=== PATIENT | male | born 1975 | race Caucasian/White ===

== ENCOUNTER 2020-02-24 16:54 | Outpatient (REF) | payer OTHER, SELFPAY | END 2020-02-24 16:55 | disposition home or self-care (01) | LOC: HO.LAB 16:54 | PROVIDERS: PCP Nurse Practitioner Family; Visit Provider Nurse Practitioner Family | DX: Z20.828 Contact with and (suspected) exposure to other viral communicable diseases (principal) | CPT/HCPCS: U0003 ==

== ENCOUNTER 2020-03-21 14:22 | Outpatient (REF) | payer OTHER, SELFPAY | END 2020-03-21 14:23 | disposition home or self-care (01) | LOC: HO.LAB 14:22 | PROVIDERS: PCP Nurse Practitioner Family; Visit Provider Internal Medicine | DX: Z20.828 Contact with and (suspected) exposure to other viral communicable diseases (principal) | CPT/HCPCS: C9803; U0003 ==

== ENCOUNTER 2020-04-21 12:21 | Outpatient (REF) | payer OTHER, SELFPAY ==
[2020-04-21 14:26] LABS: Alanine Aminotransferase 43 U/L (0-40); Albumin Level 4.5 g/dL (3.5-5.0); Alkaline Phosphatase 64 U/L (39-117); Anion Gap 12 (12-20); Aspartate Amino Transferase 23 U/L (5-37); Bilirubin Total 0.6 mg/dL (0.0-1.0); Blood Urea Nitrogen 14 mg/dL (9-16); Calcium 9.5 mg/dL (8.4-10.2); Carbon Dioxide 30 mmol/L (22-29); Chloride 100 mmol/L (96-108); Cholesterol 224 mg/dL; Estimated Glomerular Filt Rate > 60; Glucose Fasting 84 mg/dL (60-99); HDL Cholesterol 41 mg/dL; LDL Cholesterol Calculated 143 mg/dl; Potassium 3.7 mmol/l (3.3-5.1); Sodium 138 mmol/L (135-145); Total Protein 7.5 g/dL (6.5-8.0); Triglycerides 200 mg/dL
[2020-04-21 14:48] LABS: TSH reflex Free T4 1.43 mIU/mL (0.32-4.0)
== END 2020-04-21 12:22 | disposition home or self-care (01) ==
LOC: HO.HMGCLDS 12:21
PROVIDERS: PCP Nurse Practitioner Family; Visit Provider Nurse Practitioner Family
DX: Z00.00 Encounter for general adult medical examination without abnormal findings (principal)
CPT/HCPCS: 36415; 80053; 80061; 84443

== ENCOUNTER 2020-04-25 12:59 | Outpatient (REF) | payer OTHER, SELFPAY ==
[2020-04-27 09:42] LABS: HBc Num1 0.15 S/CO (0.00-0.79); HBsAGNum1 0.27 S/CO (0.00-0.99); Hepatitis A Antibody IgM 0.21 Index (0-0.79); Hepatitis B Core Antibody Nonreactive (Nonreactive); Hepatitis B Surface Antigen Negative (Negative); ~HepC Num1 0.11 S/CO (0.00-0.79); ~Hepatitis A Antibody IgM Nonreactive (Nonreactive); ~Hepatitis B Surface Antibody NONREACTIVE (Nonreactive); ~Hepatitis C Antibody Nonreactive (Nonreactive)
== END 2020-04-25 13:00 | disposition home or self-care (01) ==
LOC: HO.LAB 12:59
PROVIDERS: PCP Nurse Practitioner Family; Visit Provider Nurse Practitioner Family
DX: R74.8 Abnormal levels of other serum enzymes (principal)
CPT/HCPCS: 36415; 86704; 86706; 86709; 86803; 87340

== ENCOUNTER 2020-05-03 09:52 | Outpatient (REF) | payer OTHER, SELFPAY ==
--- NOTE | 2020-05-03 09:56 | US_ITS ---
EXAMINATION: US ABDOMEN COMPLETE CLINICAL INFORMATION: Abnormal liver function tests. COMPARISON: Ultrasound abdomen limited 04/18/2018 TECHNIQUE: Real-time imaging of the abdominal viscera. FINDINGS: PANCREAS: Normal. ABDOMINAL AORTA: The proximal, mid, and distal segments are normal in caliber. INFERIOR VENA CAVA: Visualized portions are normal. LIVER: There is increased liver echogenicity. The liver is normal in size. The liver contour is normal. No focal hepatic lesion. There is no intrahepatic biliary duct dilatation seen. GALLBLADDER: Normal. The gallbladder is physiologically distended without evidence of stones, sludge, polyps, wall thickening, or pericholecystic fluid. COMMON BILE DUCT: Normal in caliber measuring 0.3 cm in diameter. RIGHT KIDNEY: Normal. No hydronephrosis. No renal calculi or focal parenchymal lesions. The kidney measures 10.7 cm in maximum dimension. LEFT KIDNEY: Normal. No hydronephrosis. No renal calculi or focal parenchymal lesions. The kidney measures 11.6 cm in maximum dimension. SPLEEN: Normal. The spleen measures 12.6 cm in maximum dimension. FREE FLUID: None. US/US abdomen complete IMPRESSION: Mild hepatic steatosis without any focal lesion. The rest of the abdominal ultrasound is unremarkable.
== END 2020-05-03 09:53 | disposition home or self-care (01) ==
LOC: HO.HMGCX 09:52
PROVIDERS: PCP Nurse Practitioner Family; Visit Provider Nurse Practitioner Family
DX: R74.8 Abnormal levels of other serum enzymes (principal)
CPT/HCPCS: 76700

== ENCOUNTER 2020-09-19 13:54 | Outpatient (REF) | payer OTHER, SELFPAY ==
--- NOTE | ~2020-09-19 | XR_ITS ---
EXAMINATION: XR WRIST, RIGHT CLINICAL INFORMATION: Injury right wrist. Pain. COMPARISON: None TECHNIQUE: PA, lateral, and oblique views of the right wrist. FINDINGS: There is no fracture, dislocation, or destructive process. The ulnar variance is neutral. The pronator quadratus fat pad appears normal. There is no joint narrowing or erosive change or visible chondrocalcinosis. XR/XR wrist RT min 3V IMPRESSION: Normal right wrist.
[2020-09-19 16:59] LABS: Alanine Aminotransferase 43 U/L (0-40); Albumin Level 4.7 g/dL (3.5-5.0); Alkaline Phosphatase 69 U/L (39-117); Anion Gap 15 (12-20); Aspartate Amino Transferase 26 U/L (5-37); Bilirubin Total 0.4 mg/dL (0.0-1.0); Blood Urea Nitrogen 17 mg/dL (9-16); Calcium 9.5 mg/dL (8.4-10.2); Carbon Dioxide 26 mmol/L (22-29); Chloride 103 mmol/L (96-108); Cholesterol 204 mg/dL; Estimated Glomerular Filt Rate > 60; Glucose Fasting 81 mg/dL (60-99); HDL Cholesterol 39 mg/dL; LDL Cholesterol Calculated 129 mg/dl; Potassium 4.3 mmol/L (3.3-5.1); Sodium 140 mmol/L (135-145); Total Protein 7.7 g/dL (6.5-8.0); Triglycerides 183 mg/dL
== END 2020-09-19 13:55 | disposition home or self-care (01) ==
LOC: HO.HMGCX 13:54
PROVIDERS: PCP Nurse Practitioner Family; Visit Provider Nurse Practitioner Family
DX: S69.91XA Unspecified injury of right wrist, hand and finger(s), initial encounter (principal); E78.5 Hyperlipidemia, unspecified
CPT/HCPCS: 36415; 73110; 80053; 80061

== ENCOUNTER 2021-07-18 12:17 | Outpatient (REF) | payer OTHER, SELFPAY ==
[2021-07-18 14:39] LABS: Alanine Aminotransferase 44 U/L (0-40); Albumin Level 4.4 g/dL (3.5-5.0); Alkaline Phosphatase 70 U/L (39-117); Anion Gap 13 (12-20); Aspartate Amino Transferase 23 U/L (5-37); Bilirubin Total 0.6 mg/dL (0.0-1.0); Blood Urea Nitrogen 16 mg/dL (9-16); Calcium 9.9 mg/dL (8.4-10.2); Carbon Dioxide 26 mmol/L (22-29); Chloride 102 mmol/L (96-108); Cholesterol 219 mg/dL; Estimated Glomerular Filt Rate > 60; Glucose Fasting 100 mg/dL (60-99); HDL Cholesterol 38 mg/dL; LDL Cholesterol Calculated 152 mg/dl; Sodium 137 mmol/L (135-145); Total Protein 7.6 g/dL (6.5-8.0); Triglycerides 145 mg/dL
[2021-07-18 14:54] LABS: TSH reflex Free T4 2.62 uIU/mL (0.32-4.0)
== END 2021-07-18 12:18 | disposition home or self-care (01) ==
LOC: HO.HMGCLDS 12:17
PROVIDERS: Visit Provider Nurse Practitioner Family
DX: E78.5 Hyperlipidemia, unspecified (principal)
CPT/HCPCS: 36415; 80053; 80061; 84443

== ENCOUNTER 2021-10-06 14:52 | Outpatient (REF) | payer OTHER, SELFPAY ==
[2021-10-06 16:40] LABS: Cholesterol 151 mg/dL; HDL Cholesterol 40 mg/dL; LDL Cholesterol Calculated 96 mg/dl; Triglycerides 78 mg/dL
== END 2021-10-06 14:53 | disposition home or self-care (01) ==
LOC: HO.HMGCLDS 14:52
PROVIDERS: PCP Nurse Practitioner Family; Visit Provider Nurse Practitioner Family
DX: E78.5 Hyperlipidemia, unspecified (principal)
CPT/HCPCS: 36415; 80061

== ENCOUNTER 2023-02-27 13:18 | Outpatient (AMB) | payer OTHER, SELFPAY ==
--- NOTE | 2023-02-27 13:36 | MHC.OFFWIV ---
Intake Vital Signs 02/27/23 13:37 Height 5 ft 10 in Weight 208 lb BMI 29.8 BP 120/80 Blood Pressure Location Rt brachial Position Sitting Pulse 66 Pulse Source Pulse Oximeter Pulse Oximetry (%) 98 Oxygen Delivery Method Room Air Intake Visit Reasons: EP, swelling on left side of cheek Intake Note: Patient here for possible infection on left upper gum that has been present for about 3 days. Patient Tobacco Use Status: Never used Tobacco Allergies pollen Allergy (Unknown, Verified 02/27/23 13:38) Unknown trees Allergy (Unknown, Verified 02/27/23 13:38) Unknown Do you need a note to return to daycare/school/sports/work: No HPI EP, swelling on left side of cheek HPI Details 47 year old patient presents today with inflammed gums at the top/inner aspect of the left side of his mouth. He denies any recent dental work or mouth trauma. Denies any tooth pain. Denies fever/chills. Has throbbing mouth pain that radiates into the left side of his face. Has been using Ibuprofen with minimal relief. [facility] Medical History Vertigo Sensorineural hearing loss Microscopic hematuria Chiari I malformation Menieres disease Surgical History History of abdominal surgery Family History Father Migraine Mother Anxiety Depression Asthma Housing: House Housing Other:: with mother Alcohol intake: never Patient Tobacco Use Status: Never used Tobacco Second Hand Smoke Exposure: No service: No Current occupational status: disabled Cognitive needs: No Hearing needs: No Vision needs: No Review of Systems Const All systems reviewed & are unremarkable except as noted in HPI and below Physical Exam Vital Signs: BMI result Body Mass Index 29.0 Const General: cooperative, healthy appearing, comfortable and no acute distress HEENT Head: Yes normal to inspection General nose exam: Normal external nose present and Normal nasal mucous membranes and turbinates present Face and sinus: Yes normal facial exam Mouth: moist mucous membranes and moist mucous membranes abnormal (swollen, erythematous gingival tissue inf aspect of left upper/inner mouth) Teeth and gingiva: dentition normal Teeth image: 1. erythema, swelling, tenderness Throat: Yes posterior oropharynx normal Neck Neck: Yes no lymphadenopathy Resp Effort & Inspection: normal respiratory effort and able to speak in complete sentences Auscultation: clear to auscultation bilaterally Cardio Jugular venous distension: no JVD Palpation: normal PMI Rate: regular rate Rhythm: regular rhythm Skin General skin exam: no rashes or lesions noted Psych Appearance: grossly normal Mental Status: mental status grossly normal Speech and movement: Normal speech and movement present Assessment & Plan Assessment & Plan (1) Oral cellulitis: Code(s): K12.2 - Cellulitis and abscess of mouth Plan: Odontogenic soft tissue infection. Will start patient on augmentin and also meloxicam. Reviewed indications, use, possible s/e of these. We discussed going to see dentist/oral surgeon however he does not wish to do this as he had a negative experience last time. I encouraged him to go to ED if he does not begin to improve with treatment, or certainly if condition worsens or new symptoms such as increased pain, fever, or chills develop. He verbalizes understanding and agrees to plan. Medications: New amoxicillin-pot clavulanate 875-125 mg 1 tab PO BID 7 days 14 tabs 0RF K12.2 - Cellulitis and abscess of mouth meloxicam 15 mg PO DAILY 7 days 7 tabs 0RF pain K12.2 - Cellulitis and abscess of mouth Coding Level of Care Code Est Pt Level 3 (70385) Diagnoses Oral cellulitis K12.2
[2023-02-27 13:37] VITALS: BP 120/80; PULSE 66; O2SAT 98; BMI 29.8
== END 2023-02-27 14:01 | disposition home or self-care (01) ==
PROVIDERS: PCP Nurse Practitioner Family; Visit Provider Nurse Practitioner Family
DX: K12.2 Cellulitis and abscess of mouth (principal)
CPT/HCPCS: 99213

== ENCOUNTER 2024-04-05 08:01 | Emergency (ER) | payer OTHER, SELFPAY ==
--- NOTE | ~2024-04-05 | CT_ITS ---
CLINICAL HISTORY: RLQ pain CT abdomen and pelvis with IV contrast Comparison: US - US ABDOMEN COMPLETE - 05/03/2020 10:03 AM EST Findings: Right middle lobe atelectasis. No dependent layering pleural effusions. The heart is not enlarged. Coronary artery calcifications: None. Liver normal size and contour. No focal hepatic lesions. Patent hepatic and portal veins. Physiologic distention of the gallbladder with no radiopaque gallstones. Homogeneous enhancement of the pancreas. No splenomegaly. Normal adrenal glands. Symmetrical renal excretion with no segmental or diffuse renal parenchymal disease or evidence of obstructive uropathy/hydroureteronephrosis. Normal caliber abdominal aorta. Bowel demonstrates a nonobstructive pattern. No free air. Normal appendix and terminal ileum. Diverticulosis coli without CT evidence of acute diverticulitis. Within the subcutaneous soft tissues of the right ischioanal fossa is a 2.3 cm circumscribed nodule partially imaged. The density has a measurement of 27 Hounsfield units. Partially decompressed urinary bladder. Probable mild cystitis. Mild prostatomegaly. No vertebral body compression fractures or spondylolisthesis. No bony destructive lesions. Impression: 1. Normal appendix. 2. Mild cystitis suspected. No pyelonephritis or pyonephrosis. Bilateral subcentimeter renal cortical cysts can be correlated with ultrasound. Mild prostatomegaly 3. 2.3 cm partially imaged circumscribed lesion in the right ischioanal fossa Hounsfield units 27. This is indeterminate. A pre and post-contrast CT or MRI of the pelvis can be considered on a outpatient basis. This document has been electronically signed by: Avel Fernandez MD on 04/05/2024 10:18:37
[2024-04-05 08:02] VITALS: BP 142/88; PULSE 83; RESP 16; TEMP 36.3; O2SAT 95; BMI 29.4
[2024-04-05 08:19] VITALS: BP 140/81; PULSE 81; RESP 16; TEMP 36.6; O2SAT 95
--- NOTE | 2024-04-05 08:22 | ED.ABDPAIN ---
HPI - Abdominal Pain General Chief Complaint: Abdominal Pain Stated Complaint: LRQ pain Time Seen by Provider: 04/05/24 08:22 Source: patient and RN notes reviewed Mode of arrival: ambulatory Limitations: no limitations History of Present Illness ED Provider: Marcela Murillo PA-C HPI narrative: This is a 48-year-old male, with a history of Meniere's disease, who presents emergency department with complaints of right lower quadrant pain which started at 7:00 a.m. this morning. Patient states that the pain woke him up. He states that the pain starts in his right lower quadrant, and radiates into his right flank. He states that he is still passing gas. He states as a child he had a small bowel obstruction. He denies any fevers, chills, nausea, chest pain, shortness of breath. Last bowel movement was this morning, states that he had to strain to pass this stool. Denies any diarrhea. Does admit to having darker colored urine this AM. No other urinary symptoms. Denies taking any medications prior to his arrival. No other complaints or concerns at this time. MD elicited complaint: abdominal pain and flank pain Pertinent past history: none Onset (ago): hour(s) Pain Consistency: constant Location: RLQ and R flank Quality: cramping, stabbing and aching Radiation: R flank Exacerbating factors: nothing Relieving factors: other (Passing gas) Associated symptoms: denies other symptoms Related Data Home Medications ?Medication ?Instructions ?Recorded ?Confirmed nortriptyline 50 mg capsule 50 mg PO BEDTIME 02/22/20 12/06/21 triamterene 37.5 1 cap PO DAILY 02/22/20 12/06/21 mg-hydrochlorothiazide 25 mg capsule verapamil 120 mg tablet 120 mg PO DAILY 02/22/20 12/06/21 Previous Rx's ?Medication ?Instructions ?Recorded atorvastatin 10 mg tablet 10 mg PO BEDTIME 90 days #90 tabs 08/10/22 loratadine 10 mg tablet 10 mg PO DAILY 90 days #90 tabs 08/10/22 amoxicillin 875 mg-potassium 1 tab PO BID 7 days #14 tabs 02/27/23 clavulanate 125 mg tablet meloxicam 15 mg tablet 15 mg PO DAILY pain 7 days #7 tabs 02/27/23 cefuroxime axetil 500 mg tablet 500 mg PO BID 7 days #13 tabs 04/05/24 Allergies Allergy/AdvReac Type Severity Reaction Status Date / Time pollen Allergy Unknown Unknown Verified 04/05/24 08:05 trees Allergy Unknown Unknown Verified 04/05/24 08:05 Review of Systems Review of Systems Yes all other systems are reviewed and are negative Constitutional: Reports as per HPI [facility] Past Medical History Medical History Vertigo Sensorineural hearing loss Microscopic hematuria Chiari I malformation Menieres disease Surgical History History of abdominal surgery Family History Family History Father Migraine Mother Anxiety Depression Asthma Social History Social History Housing: House Housing Other:: with mother Alcohol intake: never Patient Tobacco Use Status: Never used Tobacco Smoked in Last 30 Days: No Second Hand Smoke Exposure: No Use of substances other than those prescribed or required for medical reasons: No Advance Directives: No Advance Directives Information Provided: No service: No Current occupational status: disabled Cognitive needs: No Hearing needs: No Vision needs: No Physical Exam ED Vital Signs: Vital Signs - 24 hr 04/05/24 11:02 04/05/24 11:18 Temperature 97.8 F 97.8 F Pulse Rate 75 75 Respiratory Rate 14 14 Blood Pressure 129/75 129/75 Pulse Oximetry 93 93 Oxygen Delivery Method Room Air Room Air BMI result Body Mass Index 29.4 Const General: cooperative, comfortable and no acute distress Orientation/consciousness: patient oriented x3 Limitations: no limitations [facility] Head: Yes normal to inspection, Yes normocephalic and Yes atraumatic Ears: hearing grossly normal bilaterally General nose exam: Normal external nose present Face and sinus: Yes normal facial exam Mouth: Normal oral and palatal mucosa present, oropharynx normal and moist mucous membranes Throat: Yes posterior oropharynx normal Eyes General: appearance normal, both eyes and all related structures Eyelids: Yes eyelids normal Conjunctivae: conjunctivae normal Sclerae: sclerae normal Pupils: Equal, round and reactive pupils present EOM: EOMs intact bilaterally Neck Neck: Yes normal visual inspection, Yes full ROM and Yes no lymphadenopathy Lymphatic: no lymphadenopathy noted Chest Chest palpation & inspection: normal inspection of the chest Resp Effort & Inspection: normal respiratory effort and able to speak in complete sentences Auscultation: clear to auscultation bilaterally, no crackles, no rales, no rhonchi and no wheezes Cardio Rate: regular rate Rhythm: regular rhythm Heart sounds: S1 normal heart sound present and S2 normal heart sound present GI Other: Abdomen is soft, with no palpable pain however patient reports subjective pain in the right lower quadrant. No rebound or guarding. Normoactive bowel sounds present in all 4 quadrants. Inspection: Yes normal to inspection General: Yes no CVA tenderness Back/Spine/Pelvis Back: no CVA tenderness Skin General skin exam: no rashes or lesions noted Trauma: no lacerations or abrasions Wounds: no wounds Neuro General: patient oriented x3 and moves all extremities Cranial nerves: Yes Equal, round and reactive pupils present Extrem General: Yes normal to inspection Right upper extremity: normal to inspection Left upper extremity: normal to inspection Right lower extremity: normal to inspection Left lower extremity: normal to inspection Course Reevaluation(s) Reevaluation #1: Labs returned, no leukocytosis, stable H&H, no evidence of CAITLIN. Urine with protein, large blood, leuk esterases, and rbc's. CT scan revealing mild cystitis, no pyelo, also revealing bilateral sub cm cortical cyst, prostatomegaly, and a circumscribed lesion in the right ischioanal fossa - discussed findings with patient. He will follow-up with his primary care physician. Discharged on cefuroxime. Given strict return precautions. He understands agrees with plan. Patient stable for discharge. Time: 11:00 Medical Decision Making Medical Decision Making MDM Narrative: This is a 48-year-old male, with a history of Meniere's disease, who presents emergency department accompanied by his mother with concerns for right lower quadrant pain which started at 7:00 a.m. this morning. On arrival, patient mildly hypertensive at 142/80, all other vital signs within normal limits. Patient appears to be comfortable, under no acute distress. Abdomen is soft, nontender, nondistended. He has had no urinary symptoms. Differential diagnoses include obstructive uropathy, nephrolithiasis, small-bowel obstruction, gastroenteritis, gastritis. Plan: Labs, CT scan, Toradol 30 mg IV Differential Diagnosis Differential Diagnoses: The differential diagnosis associated with the presentation includes see above Lab Data MDM Lab Attestation statement: I reviewed the patient's lab results. see course comment 04/05/24 08:48 04/05/24 08:48 Labs: Lab Results 04/05/24 04/05/24 Range/Units 08:48 09:41 WBC 7.4 (4.8-10.8) X10*3/uL RBC 4.76 (4.60-5.80) X10*6/uL Hgb 15.8 (14.0-18.0) g/dl Hct 43.2 (42.0-52.0) % MCV 90.8 (80.0-98.0) fL MCH 33.2 H (27.0-33.0) pg MCHC 36.6 H (31.0-36.0) g/dl RDW 11.8 (11.0-16.0) % Plt Count 225 (160-400) X10*3/uL MPV 8.7 L (9.4-12.4) fL Immature Gran % (Auto) 0.3 (0.0-0.4) % Neut % (Auto) 71.6 (45-73) % Lymph % (Auto) 19.1 L (20-40) % [place] % (Auto) 7.1 (2-11) % Eos % (Auto) 1.2 (0-4) % Baso % (Auto) 0.7 (0-2) % Lymph # (Auto) 1.4 (1.2-4.9) X10*3/uL [place] # (Auto) 0.5 (0.1-1.2) X10*3/uL Eos # (Auto) 0.1 (0.0-0.4) X10*3/uL Baso # (Auto) 0.1 (0.0-0.2) X10*3/uL Abs Immat Gran (auto) 0.02 (0.00-0.03) X10*3/uL Absolute Neuts (auto) 5.3 (2.0-8.3) x10*3/uL Absolute Nucleated RBC 0.000 (0.0-0.012) X10*3/uL Nucleated RBC % (auto) 0.0 (0.0-0.2) /100WBC Sodium 142 (135-145) mmol/L Potassium 3.6 (3.3-5.1) mmol/L Chloride 105 (96-108) mmol/L Carbon Dioxide 28 (22-29) mmol/L Anion Gap 13 (12-20) BUN 12 (9-16) mg/dL Creatinine 1.11 (0.5-1.4) mg/dL Estim Creat Clear Calc 91.1 Estimated GFR > 60 Random Glucose 116 H (60-115) mg/dL Calcium 9.0 D (8.4-10.2) mg/dL Magnesium 2.0 (1.6-2.6) mg/dL Total Bilirubin 0.8 (0.0-1.0) mg/dL Direct Bilirubin 0.2 (0.0-0.5) mg/dL AST 26 (5-37) U/L ALT 39 (0-40) U/L Alkaline Phosphatase 70 (39-117) U/L Total Protein 7.1 (6.5-8.0) g/dL Albumin 4.2 (3.5-5.0) g/dL Lipase 20 (8-78) U/L Urine Color Dark Yellow Urine Appearance Cloudy Urine pH 5.5 (5.0-9.0) Ur Specific [place] 1.025 (1.005-1.025) Urine Protein 30 (1+) H (Neg-Trace) mg/dL Urine Glucose (UA) Negative (Negative) mg/dL Urine Ketones Trace (Negative) mg/dL Urine Blood Large (3+) H (Negative) Urine Nitrite Negative (Negative) Ur Leukocyte Esterase Trace H (Negative) Urine RBC >20 H (0-2) /HPF Urine WBC 0-5 (0-5) /HPF Ur Squamous Epith Cells 0-2 (0-2) /HPF Urine Bacteria None Seen (None Seen) Hyaline Casts 3-5 (0-2) /LPF Radiology Impression Discussion of test interpretation with radiology: I have reviewed the radiologist's reading. Radiologist Impression: [address] [address] [address] Scan Report Signed Patient: Cr Cuello Jr MR#: [id number] : 1975 Acct:[id number] Age/Sex: 48 / M ADM Date: 04/05/24 Loc: HO.ED Attending Dr: Ordering Physician: Marcela Murillo Date of Service: 04/05/24 Procedure(s): CT abdomen pelvis w IV con Accession Number(s): [id number] cc: You Ramirez [facility]-; Marcela Murillo~ Report Number: [id number]: Total DLP = 614.00 mGy-cm CLINICAL HISTORY: RLQ pain CT abdomen and pelvis with IV contrast Comparison: US - US ABDOMEN COMPLETE - 05/03/2020 10:03 AM EST Findings: Right middle lobe atelectasis. No dependent layering pleural effusions. The heart is not enlarged. Coronary artery calcifications: None. Liver normal size and contour. No focal hepatic lesions. Patent hepatic and portal veins. Physiologic distention of the gallbladder with no radiopaque gallstones. Homogeneous enhancement of the pancreas. No splenomegaly. Normal adrenal glands. Symmetrical renal excretion with no segmental or diffuse renal parenchymal disease or evidence of obstructive uropathy/hydroureteronephrosis. Normal caliber abdominal aorta. Bowel demonstrates a nonobstructive pattern. No free air. Normal appendix and terminal ileum. Diverticulosis coli without CT evidence of acute diverticulitis. Within the subcutaneous soft tissues of the right ischioanal fossa is a 2.3 cm circumscribed nodule partially imaged. The density has a measurement of 27 Hounsfield units. Partially decompressed urinary bladder. Probable mild cystitis. Mild prostatomegaly. No vertebral body compression fractures or spondylolisthesis. No bony destructive lesions. Impression: 1. Normal appendix. 2. Mild cystitis suspected. No pyelonephritis or pyonephrosis. Bilateral subcentimeter renal cortical cysts can be correlated with ultrasound. Mild prostatomegaly 3. 2.3 cm partially imaged circumscribed lesion in the right ischioanal fossa Hounsfield units 27. This is indeterminate. A pre and post-contrast CT or MRI of the pelvis can be considered on a outpatient basis. This document has been electronically signed by: Avel Fernandez MD on 04/05/2024 10:18:37 Dictated By: Avel Fernandez MD Medications Administered Discontinued Medications Generic Name Dose Route Start Last Admin Trade Name Freq PRN Reason Stop Dose Admin Cefuroxime Axetil 500 mg 04/05/24 10:59 04/05/24 11:13 Cefuroxime Axetil 500 Mg Tablet PO 04/05/24 11:00 500 mg ONCE ONE Administration Iohexol 100 ml 04/05/24 09:39 04/05/24 09:39 Iohexol 350 Mg/Ml 100 Ml Infus..Btl IV 04/05/24 09:40 85 ml ONCE ONE Administration Ketorolac Tromethamine 30 mg 04/05/24 08:36 04/05/24 08:49 Ketorolac Tromethamine 30 Mg/Ml Vial IVPUSH 04/05/24 08:37 30 mg ONCE ONE Administration Discharge Plan Discharge Clinical Impression: Cystitis, Abnormal CT scan Patient Disposition: Home, Self-Care Instructions: Urinary Tract Infection in Men (ED) Additional Instructions: You were seen in the emergency department due to abdominal pain. Your urine is concerning for urinary tract infection. Your CT scan also reveals evidence of this. Please take prescribed antibiotic as directed, finish the entire course even if your symptoms improve. We are sending your urine for further testing, we will call you if we need to switch your antibiotic. You also have incidental findings on your CT scan. Please see below for CT scan details. Your primary care physician can follow-up with these findings. Impression: 1. Normal appendix. 2. Mild cystitis suspected. No pyelonephritis or pyonephrosis. Bilateral subcentimeter renal cortical cysts can be correlated with ultrasound. Mild prostatomegaly 3. 2.3 cm partially imaged circumscribed lesion in the right ischioanal fossa Hounsfield units 27. This is indeterminate. A pre and post-contrast CT or MRI of the pelvis can be considered on a outpatient basis. If any new or worsening symptoms occur including but not limited to high fevers, severe abdominal pain, nausea, vomiting or diarrhea, please seek emergent care. Prescriptions: New cefuroxime axetil 500 mg tablet 500 mg PO BID 7 Days Qty: 13 0RF No Action atorvastatin 10 mg tablet 10 mg PO BEDTIME 90 Days Qty: 90 1RF Rx Instructions: schedule PCP appt for future refills loratadine 10 mg tablet 10 mg PO DAILY 90 Days Qty: 90 1RF Rx Instructions: schedule PCP appt for future refills nortriptyline 50 mg capsule 50 mg PO BEDTIME triamterene-hydrochlorothiazid 37.5-25 mg capsule 1 cap PO DAILY verapamil 120 mg tablet 120 mg PO DAILY amoxicillin-pot clavulanate 875-125 mg tablet 1 tab PO BID 7 Days Qty: 14 0RF meloxicam 15 mg tablet 15 mg PO DAILY 7 Days Qty: 7 0RF Referrals: You Ramirez, [facility] [Primary Care Provider] - Interventions: ED Discharge Assessment Last Done: 04/05/24 11:18 Discharge Date/Time: 04/05/24 11:29 Print Language: Japanese
--- NOTE | 2024-04-05 08:25 | PC.NURSE ---
Pt comes to ED today for c/o RLQ abd pain starting this AM at 0700. Pt reports pain is 9/10 achy in nature with numbness to the area. Pt denies Hx constipation however reports today he had a BM but felt there was still more to pass. Denies changes to PO intake. No pain with urination. A&Ox3, VSS, afebrile. Skin is warm and dry Breaths and speech are unlabored. NAD noted at this time PA at bedside for eval--awaiting new orders.
[2024-04-05] MEDS: Ketorolac Tromethamine 30 MG/ML VIAL IVPUSH (08:49)
[2024-04-05 08:55] LABS: MANUAL DIFF FLAG NO
[2024-04-05 08:56] LABS: Basophils Absolute Auto 0.1 X10*3/uL (0.0-0.2); Basophils Percent Auto 0.7 % (0-2); Eosinophils Absolute Auto 0.1 X10*3/uL (0.0-0.4); Eosinophils Percent Auto 1.2 % (0-4); Hematocrit 43.2 % (42.0-52.0); Hemoglobin 15.8 g/dl (14.0-18.0); Imm Gran Abs Auto 0.02 X10*3/uL (0.00-0.03); Imm Gran Pct Auto 0.3 % (0.0-0.4); Lymphocytes Absolute Auto 1.4 X10*3/uL (1.2-4.9); Lymphocytes Percent Auto 19.1 % (20-40); Mean Corpuscular HGB Conc 36.6 g/dl (31.0-36.0); Mean Corpuscular Hemoglobin 33.2 pg (27.0-33.0); Mean Corpuscular Volume 90.8 fL (80.0-98.0); Mean Platelet Volume 8.7 fL (9.4-12.4); Monocytes Absolute Auto 0.5 X10*3/uL (0.1-1.2); Monocytes Percent Auto 7.1 % (2-11); Neutrophils Absolute Auto 5.3 x10*3/uL (2.0-8.3); Neutrophils Percent Auto 71.6 % (45-73); Platelet Count 225 X10*3/uL (160-400); Red Blood Count 4.76 X10*6/uL (4.60-5.80); Red Cell Distribution Width 11.8 % (11.0-16.0); White Blood Count 7.4 X10*3/uL (4.8-10.8)
[2024-04-05 09:10] LABS: Alanine Aminotransferase 39 U/L (0-40); Albumin Level 4.2 g/dL (3.5-5.0); Alkaline Phosphatase 70 U/L (39-117); Anion Gap 13 (12-20); Aspartate Amino Transferase 26 U/L (5-37); Bilirubin Direct 0.2 mg/dL (0.0-0.5); Bilirubin Total 0.8 mg/dL (0.0-1.0); Blood Urea Nitrogen 12 mg/dL (9-16); Carbon Dioxide 28 mmol/L (22-29); Chloride 105 mmol/L (96-108); Creatinine Clr Calc Pharmacy 91.1; Estimated Glomerular Filt Rate > 60; Glucose Random 116 mg/dL (60-115); Lipase 20 U/L (8-78); Potassium 3.6 mmol/L (3.3-5.1); Sodium 142 mmol/L (135-145); Total Protein 7.1 g/dL (6.5-8.0)
[2024-04-05] MEDS: iohexoL 350 MG/ML 100 ML INFUS..BTL IV (09:39)
[2024-04-05 09:56] LABS: Appearance Urine Cloudy; Color Urine Dark Yellow; Glucose Urine UA Negative (Negative); Leukocyte Esterase Urine Trace (Negative); Nitrite Urine Negative (Negative); PH 5.5 (5.0-9.0); Specific Gravity - Urine 1.025 (1.005-1.025); UMIC TRIGGER UACC YES; Urine Blood Large (3+) (Negative); Urine Ketones Trace mg/dL (Negative); Urine Protein 30 (1+) mg/dL (Neg-Trace)
[2024-04-05 10:01] LABS: Bacteria Urine None Seen (None Seen); RBC Urine >20 /HPF (0-2); Squamous Epithelial Cell Urine 0-2 /HPF (0-2); WBC Urine 0-5 /HPF (0-5)
[2024-04-05 11:02] VITALS: BP 129/75; PULSE 75; RESP 14; TEMP 36.6; O2SAT 93
[2024-04-05] MEDS: cefuroxime axetiL 500 MG TABLET PO (11:13)
[2024-04-05 11:18] VITALS: BP 129/75; PULSE 75; RESP 14; TEMP 36.6; O2SAT 93
== END 2024-04-05 11:29 | disposition home or self-care (01) ==
PROVIDERS: Physician Assistant Medical; Emergency Provider Emergency Medicine; PCP Nurse Practitioner Family
DX: R10.31 Right lower quadrant pain (principal); R10.2 Pelvic and perineal pain; N30.90 Cystitis, unspecified without hematuria; R93.5 Abnormal findings on diagnostic imaging of other abdominal regions, including retroperitoneum; Z79.899 Other long term (current) drug therapy
CPT/HCPCS: 36415; 74177; 80048; 80076; 81001; 83690; 83735; 85025; 96374; 99284; J1885; Q9967

== ENCOUNTER → 2024-04-05 08:36 | Outpatient (BNV) | payer OTHER, SELFPAY | PROVIDERS: Emergency Provider Emergency Medicine; PCP Nurse Practitioner Family; Visit Provider Radiology Diagnostic Radiology | DX: K57.30 Diverticulosis of large intestine without perforation or abscess without bleeding (principal); K61.39 Other ischiorectal abscess | CPT/HCPCS: 74177 ==

== ENCOUNTER 2024-04-14 12:14 | Outpatient (REF) | payer OTHER, SELFPAY ==
[2024-04-14 16:08] LABS: MANUAL DIFF FLAG NO
[2024-04-14 16:20] LABS: Appearance Urine Cloudy; Color Urine Yellow; Glucose Urine UA Negative (Negative); Leukocyte Esterase Urine Negative (Negative); Nitrite Urine Negative (Negative); Specific Gravity - Urine 1.025 (1.005-1.025); UMIC TRIGGER UACC YES; Urine Blood Trace (Negative); Urine Ketones Negative (Negative); Urine Protein Negative (Neg-Trace)
[2024-04-14 16:21] LABS: Basophils Absolute Auto 0.1 X10*3/uL (0.0-0.2); Eosinophils Absolute Auto 0.1 X10*3/uL (0.0-0.4); Eosinophils Percent Auto 1.8 % (0-4); Hematocrit 46.7 % (42.0-52.0); Hemoglobin 16.1 g/dl (14.0-18.0); Imm Gran Abs Auto 0.03 X10*3/uL (0.00-0.03); Imm Gran Pct Auto 0.6 % (0.0-0.4); Lymphocytes Absolute Auto 1.5 X10*3/uL (1.2-4.9); Mean Corpuscular HGB Conc 34.5 g/dl (31.0-36.0); Mean Corpuscular Hemoglobin 32.4 pg (27.0-33.0); Mean Platelet Volume 9.4 fL (9.4-12.4); Monocytes Absolute Auto 0.4 X10*3/uL (0.1-1.2); Monocytes Percent Auto 7.5 % (2-11); Neutrophils Absolute Auto 2.9 x10*3/uL (2.0-8.3); Neutrophils Percent Auto 59.1 % (45-73); Platelet Count 247 X10*3/uL (160-400); Red Blood Count 4.97 X10*6/uL (4.60-5.80); White Blood Count 4.9 X10*3/uL (4.8-10.8)
[2024-04-14 16:28] LABS: Bacteria Urine None Seen (None Seen); Hyaline Casts Urine 0-2 /LPF (0-2); RBC Urine 0-2 /HPF (0-2); Squamous Epithelial Cell Urine 0-2 /HPF (0-2); WBC Urine 0-5 /HPF (0-5)
[2024-04-14 16:51] LABS: Prostate Specific Antigen Scr 0.66 ng/mL (<0.05-4.0)
[2024-04-14 17:03] LABS: Alanine Aminotransferase 33 U/L (0-40); Albumin Level 4.3 g/dL (3.5-5.0); Anion Gap 10 (12-20); Aspartate Amino Transferase 30 U/L (5-37); Bilirubin Total 0.5 mg/dL (0.0-1.0); Blood Urea Nitrogen 17 mg/dL (9-16); Calcium 9.4 mg/dL (8.4-10.2); Carbon Dioxide 31 mmol/L (22-29); Chloride 105 mmol/L (96-108); Cholesterol 183 mg/dL (<200); Estimated Glomerular Filt Rate > 60; Glucose Fasting 94 mg/dL (60-99); HDL Cholesterol 40 mg/dL (>40); LDL Cholesterol Calculated 119 mg/dL (<100); Potassium 4.5 mmol/L (3.3-5.1); Sodium 141 mmol/L (135-145); Total Protein 7.2 g/dL (6.5-8.0); Triglycerides 124 mg/dL (<150)
[2024-04-14 17:22] LABS: Alkaline Phosphatase 61 U/L (39-117)
[2024-04-14 17:31] LABS: TSH reflex Free T4 2.42 uIU/mL (0.32-4.0)
== END 2024-04-14 12:15 | disposition home or self-care (01) ==
LOC: HO.HMGCLDS 12:14
PROVIDERS: PCP Nurse Practitioner Family; Visit Provider Nurse Practitioner Family
DX: E78.5 Hyperlipidemia, unspecified (principal); Z12.5 Encounter for screening for malignant neoplasm of prostate; R82.90 Unspecified abnormal findings in urine
CPT/HCPCS: 36415; 80053; 80061; 81001; 84153; 84443; 85025; 87086

== ENCOUNTER 2024-04-30 11:25 | Outpatient (REF) | payer OTHER, SELFPAY ==
[2024-04-30 14:53] LABS: Influenza A PCR NEGATIVE (Negative); Influenza B PCR NEGATIVE (Negative); Resp Syncy Virus RNA Qual PCR NEGATIVE (Negative); SARS COV2 PCR INHOUSE NEGATIVE (Negative)
== END 2024-04-30 11:26 | disposition home or self-care (01) ==
LOC: HO.LAB 11:25
PROVIDERS: PCP Nurse Practitioner Family; Visit Provider Physician Assistant
DX: J02.9 Acute pharyngitis, unspecified (principal); R09.89 Other specified symptoms and signs involving the circulatory and respiratory systems
CPT/HCPCS: 0241U; 87070; 87880; 99212

== ENCOUNTER 2024-04-30 11:25 | Outpatient (AMB) | payer OTHER, SELFPAY ==
--- NOTE | 2024-04-30 11:44 | MHC.OFFWIV ---
Intake Vital Signs 04/30/24 11:53 Weight 204 lb 2 oz BP 124/78 Blood Pressure Location Rt brachial Position Sitting Pulse 92 Pulse Source Pulse Oximeter Temp 98.3 F Temp Source Oral Pulse Oximetry (%) 96 Oxygen Delivery Method Room Air Intake Visit Reasons: EP ? strep throat Intake Note: Patient here for sore throat, post nasal drip and head ache that has been present for a couple of days. Patient Tobacco Use Status: Never used Tobacco Allergies pollen Allergy (Unknown, Verified 04/30/24 11:54) Unknown trees Allergy (Unknown, Verified 04/30/24 11:54) Unknown Do you need a note to return to daycare/school/sports/work: No HPI HPI Comments History of Present Illness Details History - The patient is a 48-year-old male presenting with a sore throat and related symptoms. - He experienced onset of throat discomfort three days ago. - Denies fevers - 800mg Ibuprofen provided initial relief, with the pain recurring mildly after two hours. - Symptoms include congestion, and nasal drainage with mild coughing . - No throat fullness, neck fullness, sinus pain or ear pain is reported. - No exposure to streptococcal pharyngitis is noted. - The patient experiences nasal drip, which is managed through spontaneous expectoration. Physical Exam General: Cooperative, healthy appearing, comfortable and no acute distress Orientation/consciousness: Patient oriented x3 Limitations: No limitations Head: Normal to inspection Ears: Hearing grossly normal bilaterally, external ears normal and TM's normal bilaterally Nose: Normal external nose present, Normal nares present and No nasal discharge present Face and sinus: Normal facial exam and Yes sinuses nontender Mouth: Normal oral and palatal mucosa present and moist mucous membranes Throat: Yes tonsils normal, Yes uvula midline. Posterior oropharynx slight erythema, no exudates Eyes: Appearance normal, both eyes and all related structures Neck: Normal visual inspection, no lymph node swelling Respiratory: Normal respiratory effort, able to speak in complete sentences, no respiratory distress, not tachypneic, no tripod positioning and no use of accessory muscles Skin: No rashes or lesions noted Neuro: Patient oriented x3 Extremities: Normal to inspection and Yes no clubbing, cyanosis or edema [facility] Medical History (Updated 04/30/24 @ 12:19 by Gwendolyn Albright PA-C) Vertigo Sensorineural hearing loss Microscopic hematuria Chiari I malformation Menieres disease Surgical History History of abdominal surgery Family History Father Migraine Mother Anxiety Depression Asthma Social History Housing: House Housing Other:: with mother Alcohol intake: never Patient Tobacco Use Status: Never used Tobacco Second Hand Smoke Exposure: No service: No Current occupational status: disabled Cognitive needs: No Hearing needs: No Vision needs: No Review of Systems Const All systems reviewed & are unremarkable except as noted in HPI and below Physical Exam Vital Signs: Last Vital Signs Temp 98.3 F 04/30/24 11:53 Pulse 92 04/30/24 11:53 BP 124/78 04/30/24 11:53 Pulse Ox 96 04/30/24 11:53 Oxygen Delivery Method Room Air 04/30/24 11:53 Assessment & Plan Assessment & Plan (1) Acute sore throat: Code(s): J02.9 - Acute pharyngitis, unspecified Plan: Rapid strep negative. The patient is assessed for acute pharyngitis likely related to a potential viral infection. Diagnostic tests for COVID-19 and RSV have been conducted to rule out these infections. A throat culture has also been performed for more definitive diagnosis of streptococcal pharyngitis. Symptomatic treatment involving decongestants and soothing throat lozenges or sprays is suggested, and the patient is advised to stay hydrated and perform warm salt water gargles as a remedy. Further intervention will be considered based on additional diagnostic results. Patient was informed and verbally consented to the use of an ambient scribe for clinic note documentation during this visit Orders: Orders SARS-CoV2/FLU/RSV Today R09.89 - Other specified symptoms and signs involving the circulatory and respiratory systems Throat Culture Today J02.9 - Acute pharyngitis, unspecified Coding Level of Care Code Est Pt Level 4 (03979) Diagnoses Acute sore throat J02.9
[2024-04-30 11:53] VITALS: BP 124/78; PULSE 92; TEMP 36.8; O2SAT 96
--- OUTSIDE RECORDS SUMMARY | 2024-04-30 13:51 | XMS_ITS | Continuity of Care Document ---
Author Organization [facility] ter Address [address] [place] [id number]- Care Team Providers Care Conference And Event Organiser Name Role Phone Not on Staff, PCP Primary Care Physician Unavail able Encounter [facility] ACCT R [id number] Date(s): 04/05/24 - 04/05/[address] [address]- Discharge Disposition: A-D/C Walkout Attending Physician: Not on Staff, Attending MD Admitting Physician: Not on Staff, Admitting MD Referring Physician: Not on Staff, Referring MD Encounter Type: Disch ES Allergies, Adverse Reactions, Alerts No Known Allergies Medications codeine-guaiFENesin 10 mg-100 mg/5 mL oral syrup 10 mL, By Mouth, Every 6 hours, PRN Cough, # 120 mL, 0 Refills, Acute 09/06/15 11:00:00 AM EDT, 08/08/15 9:35:56 AM EDT, Syrup Start Date: 08/08/15 Stop Date: 09/06/15 Status: Ordered Quantity: 120.0 Unit: mL Repeat number: 1 hydrochlorothiazide-triamterene 25 mg-37.5 mg oral tablet 1, tablet, By Mouth, Daily, # 30 tablet, Refills 0, Maintenance, 08/06/15 4:22:49 PM EDT, Tablet Start Date: 08/06/15 Status: Ordered Quantity: 30.0 Unit: tablet Repeat number: 1 meclizine 12.5 mg oral tablet = 12.5 mg, By Mouth, 3 times a day, PRN Dizziness, 0 Refills, Maintenance, 08/08/15 9:36:15 AM EDT, Tablet Start Date: 08/08/15 Status: Ordered Repeat number: 1 nortriptyline 50 mg oral capsule 50 mg, 1, capsule, By Mouth, Daily at bedtime, # 270 capsule, Refills 0, Maintenance, 08/06/15 8:49:10 PM EDT Start Date: 08/06/15 Status: Ordered Quantity: 270.0 Unit: capsule Repeat number: 1 verapamil 120 mg oral tablet 1 tablet = 120 mg, By Mouth, Daily at bedtime, # 270 tablet, 0 Refills, Maintenance, 08/06/15 8:48:22 PM EDT, Tablet Start Date: 08/06/15 Status: Ordered Quantity: 270.0 Unit: tablet Repeat number: 1 Problem List Condition Confirmation Course Effective Dates Status Health St atus Informant CAITLIN (acute kidney injury) Confirmed Active Meniere's disease Confirmed Active Vital Signs Most recent to oldest [Reference Range]: 1 Height 178 cm (04/05/24 7:42 AM) Weight 93.5 kg (04/05/24 7:42 AM) Oxygen Saturation [94-100 %] 99 % (04/05/24 7:42 AM) Pulse Rate [55-90 bpm] 75 bpm (04/05/24 7:42 AM) Body Mass Index [18.5-24.99 kg/m2] 29.51 kg/m2 *H* (04/05/24 7:42 AM) Blood Pressure [90-138/55-84 mm Hg] 145/ 92mm Hg *H* (04/05/24 7:42 AM) Respiratory Rate [16-30 br/min] 18 br/mi n (04/05/24 7:42 AM) Temperature [96.8-100.4 DegF] 97.7 DegF (04/05/24 7:42 AM) Mode of Delivery (Oxygen) Room air (04/05/24 7:42 AM) Blood pressure sites Arm, left (04/05/24 7:42 AM) Temperature Route Oral (04/05/24 7:42 AM) Dry Weight 93.5 kg (04/05/24 7:42 AM) Weight Obtained Via Patient/family state d (04/05/24 7:42 AM) Dry Weight Obtained Via Patient/family s tated (04/05/24 7:42 AM) Social History Social History Type Response Smoking Status Never smoker; Tobacc o user in household: No entered on: 08/06/15 Sex Sex Representation Male (finding) Patient Care team information Care Team Personnel Name: Not on Staff, PCP Position: [facility] Physician (General Medicine) Member Role: PCP Name: Neela Bautista RN Position: [facility] RN Member Role: Primary Care Nurse Care Team Related Persons Name: TOOTIE NAVARRO Name: ASHLY SIMMS Insurance Providers Guarantor name: CHRI[employer]IAN Health Plan Information #: 1 Payer: Member Number: [id number] Policy Number: Group Number: Health Plan Information #: 2 Payer: Member Number: [id number] Policy Number: Group Number: [id number]
== END 2024-04-30 12:26 | disposition home or self-care (01) ==
PROVIDERS: PCP Nurse Practitioner Family; Visit Provider Physician Assistant
DX: Z13.9 Encounter for screening, unspecified (principal); J02.9 Acute pharyngitis, unspecified

== ENCOUNTER → 2024-05-05 13:42 | Outpatient (BNV) | payer OTHER, SELFPAY | PROVIDERS: PCP Nurse Practitioner Family; Visit Provider Radiology Diagnostic Radiology | DX: R19.09 Other intra-abdominal and pelvic swelling, mass and lump (principal) | CPT/HCPCS: 72197 ==

== ENCOUNTER 2024-05-05 13:52 | Outpatient (REF) | payer OTHER, SELFPAY ==
--- NOTE | ~2024-05-05 | MR_ITS ---
EXAMINATION: MR PELVIS WITHOUT THEN WITH IV CONTRAST HISTORY: R93.89 - Abnormal findings on diagnostic imaging of other specified body.... TECHNIQUE: Axial T1 and fat-suppressed T2, and coronal and sagittal T2 weighted MR images of the pelvis were obtained. Subsequently, axial fat-suppressed T1-weighted images were obtained before and after the intravenous administration of 10 mL Gadavist. Postcontrast fat-suppressed sagittal T1-weighted images were also obtained. COMPARISON: Correlation is made with a CT of the pelvis dated 04/05/2024. FINDINGS: There is a well-circumscribed 3.3 x 1.9 x 2.2 cm lobulated soft tissue mass in the right ischioanal fossa as noted on CT. The mass is hypointense on both T1 and T2-weighted images and demonstrates marked homogeneous enhancement. No additional mass is identified. There is no pelvic lymphadenopathy or ascites. The prostate is normal in size. The urinary bladder and seminal vesicles are unremarkable. The visualized bones demonstrate normal marrow signal intensity. MR/MR pelvis wo/w con IMPRESSION: 3.3 x 1.9 x 2.2 cm lobulated intensely enhancing soft tissue mass in the right ischioanal fossa. Differential diagnostic considerations include both benign and malignant entities including solitary fibrous tumor, metastatic disease, lymphoma, and sarcoma. CT guided biopsy is suggested. Electronically signed by: Devan Stout MD 05/05/2024 03:52 PM MELISSA
[2024-05-05] MEDS: gadobutroL 10 ML VIAL IVPUSH (15:10)
== END 2024-05-05 13:53 | disposition home or self-care (01) ==
LOC: HO.MRI 13:52
PROVIDERS: PCP Nurse Practitioner Family; Visit Provider Nurse Practitioner Family
DX: R93.89 Abnormal findings on diagnostic imaging of other specified body structures (principal)
CPT/HCPCS: 72197; A9585

== ENCOUNTER 2024-05-27 14:11 | Outpatient (AMB) | payer OTHER, SELFPAY ==
--- NOTE | 2024-05-27 14:12 | MHC.PC.OV ---
Vital Signs 05/27/24 14:13 Height 5 ft 10 in Weight 204 lb BMI 29.3 BP 122/72 Blood Pressure Location Rt brachial Position Sitting Pulse 86 Pulse Source Pulse Oximeter Temp 97.9 F Temp Source Oral Pulse Oximetry (%) 98 Intake Visit Reasons: Annual PE Allergies pollen Allergy (Unknown, Verified 05/27/24 14:13) Unknown trees Allergy (Unknown, Verified 05/27/24 14:13) Unknown Medication List - Last Reconciled 05/27/24 by MARTY Carrizales- atorvastatin 10 mg PO BEDTIME 90 days loratadine 10 mg PO DAILY 90 days nortriptyline 50 mg PO BEDTIME triamterene-hydrochlorothiazid 37.5-25 mg 1 cap PO DAILY verapamil 120 mg PO DAILY Tobacco use date assessed: 05/27/24 Dental Screening Dental Screen Date: 05/27/24 Did you have a dental visit in the last 12 months?: Yes Did you have a dental problem in the last 6 months where you did not have access to dental care?: No Was dental information given to patient?: Patient has dentist HPI Annual PE HPI Details History of Present Illness The patient is a 48-year-old male presenting with microscopic hematuria. He has been evaluated for this condition in the past, but previous investigations were inconclusive (according to pt). Recent imaging revealed a lobulated, enhanced soft tissue mass in the right ischioanal fossa, measuring 3.3 x 1.9 x 2.2 cm, prompting a planned biopsy for further evaluation. The patient denies any chest pain, shortness of breath, nausea, vomiting, diarrhea, incomplete bladder emptying, or nocturia. Additionally, the patient has Meniere's Disease, and is undergoing regular check-ups with an ENT specialist. He reports being generally stable in his management of Meniere's Disease and maintaining a regular exercise regime. The patient also noted intermittent urinary dribbling without significant impact on daily activities. A digital rectal examination during the visit revealed no abnormalities, confirming the normal size of the prostate. Health Maintenance - Cardiovascular screening: Patient's PSA level is within normal limits. - Exercise: Patient goes to the gym regularly. Social History - Exercise: The patient visits the gym on a regular basis. Review of Systems - Genitourinary: Reports intermittent urinary dribbling. Physical Exam General: Cooperative, healthy appearing, comfortable, no acute distress and well developed Orientation: Patient oriented x3 Limitations: No limitations Head: Normal to inspection Ears: Hearing grossly normal bilaterally Nose: Normal external nose present Face and sinus: Normal facial exam Eyes: Appearance normal, both eyes and all related structures Neck: Normal visual inspection and Yes full ROM Respiratory: Normal respiratory effort and able to speak in complete sentences. Clear to auscultation bilaterally Cardiovascular: Regular rate and rhythm. Normal S1 and S2 : MIRANDA: prostate did not feel enlarged, no nodules palpated GI: Normal to inspection. Soft to palpation and nontender Skin: No rashes or lesions noted Neuro: Patient oriented x3 Extremities: Normal to inspection Results - Labs: PSA level within normal limits. - Imaging: MRI of the pelvis revealed a 3.3 x 1.9 x 2.2 cm lobulated, enhanced soft tissue mass in the right ischioanal fossa. Plan - Refer the patient to a specific urologist for further evaluation of microscopic hematuria. - Schedule biopsy through interventional radiology to further assess the identified soft tissue mass in the right ischioanal fossa. - Continue monitoring of Meniere's Disease with ENT follow-ups. - Obtain urine cytology and culture to investigate microscopic hematuria. Discussion Notes I discussed the identified lobulated soft tissue mass in the patient's right ischioanal fossa. I informed the patient of the upcoming biopsy with interventional radiology to determine the nature of the mass. We also talked about further evaluation of his microscopic hematuria and the referral to a urologist for detailed assessment. The patient denied any significant urinary symptoms, aside from mild dribbling, and agreed to follow the plan as outlined. He understands the need for further investigation and is instructed to await radiological biopsy results and follow-up appointments. Patient Instructions - Attend the scheduled biopsy with interventional radiology next month. - Follow-up with the referred urologist from [facility] for microscopic hematuria evaluation. - Continue routine check-ups with the ENT for Meniere's Disease management. - Report any new or worsening symptoms immediately, especially changes in urinary patterns or other unexplained symptoms. [facility] Medical History Vertigo Sensorineural hearing loss Microscopic hematuria Chiari I malformation Menieres disease Surgical History History of abdominal surgery Family History Father Migraine Mother Anxiety Depression Asthma Social History Housing: House Housing Other:: with mother Alcohol intake: never Patient Tobacco Use Status: Never used Tobacco Second Hand Smoke Exposure: No service: No Current occupational status: disabled Cognitive needs: No Hearing needs: No Vision needs: No Questionnaire PHQ-9 Over the last 2 weeks, how often have you been bothered by any of the following problems? 1. Little interest or pleasure in doing things: not at all 2. Feeling down, depressed, or hopeless: not at all 3. Trouble falling or staying asleep, or sleeping too much: not at all 4. Feeling tired or having little energy: not at all 5. Poor appetite or overeating: not at all 6. Feeling bad about yourself - or that you are a failure or have let yourself or your family down: not at all 7. Trouble concentrating on things, such as reading the newspaper or watching television: not at all 8. Moving or speaking so slowly that other people could have noticed. Or the opposite - being so fidgety or restless that you have been moving around a lot more than usual: not at all 9. Thoughts that you would be better off or of hurting yourself in some way: not at all Total score: 0 Depression Screening Interpretation: Negative Depression Screening Done: Yes 92989 - PHQ-9 Billing: Yes Source: Developed by Drs. Devan Ortiz, Marianne Harden, James Granado and colleagues, with an educational uday from [employer]. Thrive Questionnaire Date Thrive assessed: 05/27/24 I am a: Patient What is your living situation today?: I have a steady place to live Within the past 12 months, did the food you bought not last and you didn't have the money to get more?: Sometimes True Within the past 12 months, did you worry whether your food would run out before you got money to buy more?: Sometimes True Do you have trouble paying for medicines?: No Do you have trouble getting transportation to medical appointments?: No Do you have trouble paying your heating and electricity bill?: No Do you have trouble taking care of your child, family member or friend?: No Do you have trouble with day-to-day activities such as bathing, preparing meals, shopping, managing finances, etc.?: No Are you currently unemployed and looking for a job?: No Are you interested in more education?: No Please select the resources that you would like help with: None Currently or been in a relationship where the following occur: I choose not to answer THRIVE Score: 2 AUDIT C Alcohol Use Questionnaire (AUDIT-C) 1. How often do you have a drink containing alcohol?: Never 2. How many drinks containing alcohol do you have on a typical day when you are drinking?: 1 or 2 3. How often do you have six or more drinks on one occasion?: Never Total Score: 0 Score Reviewed/Action Taken: Yes GENE-7 AMB Questionnaire GENE-7 Date GENE - 7 assessed: 05/27/24 Feeling nervous, anxious, or on edge: 0 = Not at all Not being able to stop or control worryin = Not at all Worrying too much about different things: 0 = Not at all Trouble relaxin = Not at all Being so restless that it is hard to sit still: 0 = Not at all Becoming easily annoyed or irritable: 0 = Not at all Feeling afraid as if something awful might happen: 0 = Not at all Total GENE-7 score (0-4 normal; 5-9 mild; 10-14 moderate; 15-21 severe): 0 Source: Developed by Drs. Devan Ortiz, Marianne Harden, James Granado and colleagues, with an educational uday from [employer]. GENE-7 Assessment Billing GENE-7 Assessment Tool: GENE-7 Assessment 45748 Physical exam (Primary Care) Vital Signs: Last Vital Signs Temp 97.9 F 05/27/24 14:13 Pulse 86 05/27/24 14:13 BP 122/72 05/27/24 14:13 Pulse Ox 98 05/27/24 14:13 BMI result Body Mass Index 29.3 Tobacco/Smoking Status: Tobacco use Status Tobacco use date assessed 05/27/24 05/27/24 14:15 Patient Tobacco Use Status Never used Tobacco 05/27/24 14:15 PHQ-9: PHQ-9 Score PHQ-9: Total score 0 05/27/24 14:15 Depression Screening Interpretation: Negative Thrive Assessment: Date of Thrive Assessment Date Thrive assessed 05/27/24 05/27/24 14:15 Currently or been in a relationship where the following occur: I choose not to answer Coding Level of Care Code Est Pt Prev Care 40-64y(80399) Diagnoses Microscopic hematuria R31.29 Screening for colon cancer Z12.11 Physical exam Z00.00 Additional Codes GENE-7 Assessment Billing - GENE-7 Assessment Tool: GENE-7 Assessment 03004 ([id number]) PHQ-9 - 41108 - PHQ-9 Billing: Yes ([id number]) Assessment & Plan Assessment & Plan (1) Microscopic hematuria: Code(s): R31.29 - Other microscopic hematuria Category: Medical (2) Screening for colon cancer: Code(s): Z12.11 - Encounter for screening for malignant neoplasm of colon Category: Medical (3) Physical exam: Code(s): Z00.00 - Encounter for general adult medical examination without abnormal findings Category: Medical Plan . Orders: Orders UA CC w/rflx Micro + Cult Today R31.29 - Other microscopic hematuria Urine Cytology Today R31.29 - Other microscopic hematuria Urine Culture Today R31.29 - Other microscopic hematuria Referrals Urology Referral R31.29 - Other microscopic hematuria Gastroenterology Referral Z12.11 - Encounter for screening for malignant neoplasm of colon
[2024-05-27 14:13] VITALS: BP 122/72; PULSE 86; TEMP 36.6; O2SAT 98; BMI 29.3
== END 2024-05-27 14:59 | disposition home or self-care (01) ==
PROVIDERS: PCP Nurse Practitioner Family; Visit Provider Nurse Practitioner Family
DX: R31.29 Other microscopic hematuria (principal); Z12.11 Encounter for screening for malignant neoplasm of colon; Z00.00 Encounter for general adult medical examination without abnormal findings

== ENCOUNTER 2024-05-27 14:11 | Outpatient (REF) | payer OTHER, SELFPAY ==
[2024-05-27 16:32] LABS: Urine Cytology See Pathology rpt
[2024-05-27 16:39] LABS: Appearance Urine Clear; Color Urine Yellow; Glucose Urine UA Negative (Negative); Leukocyte Esterase Urine Negative (Negative); Nitrite Urine Negative (Negative); Specific Gravity - Urine >= 1.030 (1.005-1.025); UMIC TRIGGER UACC YES; Urine Blood Trace (Negative); Urine Ketones Negative (Negative); Urine Protein Trace mg/dL (Neg-Trace)
[2024-05-27 17:39] LABS: Bacteria Urine None Seen (None Seen); Hyaline Casts Urine 0-2 /LPF (0-2); RBC Urine 0-2 /HPF (0-2); Squamous Epithelial Cell Urine 0-2 /HPF (0-2); WBC Urine 0-5 /HPF (0-5)
== END 2024-05-27 14:12 | disposition home or self-care (01) ==
LOC: HO.HMGCLDS 14:11
PROVIDERS: PCP Nurse Practitioner Family; Visit Provider Nurse Practitioner Family
DX: Z00.01 Encounter for general adult medical examination with abnormal findings (principal); R31.29 Other microscopic hematuria
CPT/HCPCS: 81001; 81003; 87086; 88112; 96127; 99396

== ENCOUNTER 2024-06-05 12:56 | Outpatient (REF) | payer OTHER, SELFPAY ==
--- NOTE | ~2024-06-05 | US_ITS ---
CLINICAL HISTORY: R93.89 - Abnormal findings on diagnostic imaging of other specified body... US Renal Comparison: None Findings: Right kidney normal size and echotexture, 11.2 cm length. Left kidney normal size and echotexture, 11.9 cm length. No hydronephrosis of either kidney. Normal color Doppler. Urinary bladder is unremarkable. Prevoid volume 362 mL. Postvoid volume 163 mL. Bilateral ureteral jets are visualized. IMPRESSION: 1. Normal kidneys. 2. Large postvoid residual This document has been electronically signed by: Edy Bunn MD on 06/05/2024 19:46:01
== END 2024-06-05 12:57 | disposition home or self-care (01) ==
LOC: HO.HMGCX 12:56
PROVIDERS: PCP Nurse Practitioner Family; Visit Provider Nurse Practitioner Family
DX: R93.89 Abnormal findings on diagnostic imaging of other specified body structures (principal); N30.90 Cystitis, unspecified without hematuria; N28.1 Cyst of kidney, acquired
CPT/HCPCS: 76770

== ENCOUNTER → 2024-06-05 12:57 | Outpatient (BNV) | payer OTHER, SELFPAY | PROVIDERS: PCP Nurse Practitioner Family; Visit Provider Specialist | DX: R93.89 Abnormal findings on diagnostic imaging of other specified body structures (principal) | CPT/HCPCS: 76770 ==

== ENCOUNTER 2024-06-15 09:03 | Day surgery (SDC) | payer OTHER, SELFPAY ==
[2024-06-15] VITALS (14 sets, daily range): BP systolic 120–152; BP diastolic 46–85; PULSE 70–86; RESP 14–17; TEMP 36.3–36.8; O2SAT 94–100; BMI 29.3
--- NOTE | ~2024-06-15 | CT_ITS ---
PROCEDURE: CT GUIDED BIOPSY, ABDOMINAL MASS CLINICAL INFORMATION: Soft tissue mass right issue renal foci. COMPARISON: None available. TECHNIQUE: Following explaining CT guided right AC renal fossa mass biopsy procedure, benefits and risk, a written consent was obtained. Patient was placed prone and pulmonary CT imaging was obtained through the pelvis and buttock region. Marker was placed and repeat imaging was obtained. An optimal marker was selected along the right para midline buttock region and marked and the skin. The marked area was cleaned and draped in usual sterile manner with 2% chlorhexidine solution. 1% lidocaine was administered at puncture site. There is small skin incision a 20-gauge guide needle was advanced from the skin incision to the posterior margin of the mass. Coaxially a 20-gauge biopsy needle was advanced and AP pass biopsy was performed. After achieving adequate core tissue and placing in the formalin, guide needle was removed and repeat imaging was obtained. Patient tolerated procedure extremely well. Sterile dressing applied at the puncture site. Conscious sedation was utilized during exam for 20 minutes. Patient was monitored by IR nursing and radiologist during the time. This CT examination was performed using dose optimization techniques as appropriate, variously including the following: *Automated exposure control *Adjustment of mA and/or kV according to patient size (this includes techniques or standardized protocols for targeted exams where dose is matched to indication/reason for exam; i.e. extremities or head) *Use of iterative reconstruction technique FINDINGS/ CT/CT biopsy abdomen percutaneous IMPRESSION: On preliminary CT imaging there is a solid round tissue measuring 2.2 x 2.0 cm in the right intracranial fossa. Successful 3 pass biopsy of right ischio anal mass performed without complications. Electronically signed by: Erik Fabian MD 06/16/2024 09:19 AM EDT
--- NOTE | 2024-06-15 09:33 | PC.NURSE ---
labs were drawn
[2024-06-15 10:11] LABS: INTERNATIONAL NORM RATIO 0.9 (0.9-1.1)
[2024-06-15] MEDS: Midazolam HCl 2 MG/2 ML VIAL 1 MG IVPUSH (11:03)
[2024-06-15] MEDS: fentaNYL citrate/PF 100 MCG/2 ML VIAL 25 MCG IVPUSH (11:03)
== END 2024-06-15 13:25 | disposition home or self-care (01) ==
PROVIDERS: Radiology Diagnostic Radiology; PCP Nurse Practitioner Family; Visit Provider Nurse Practitioner Family
DX: M79.89 Other specified soft tissue disorders (principal); D48.19 Other specified neoplasm of uncertain behavior of connective and other soft tissue; K62.89 Other specified diseases of anus and rectum; G93.5 Compression of brain; H81.09 Meniere's disease, unspecified ear; R31.29 Other microscopic hematuria; Z79.899 Other long term (current) drug therapy; Z98.890 Other specified postprocedural states
CPT/HCPCS: 36415; 49180; 77012; 85610; 88304; 88305; 88341; 88342; 99152; J2003; J2250; J3010

== ENCOUNTER → 2024-06-15 10:28 | Outpatient (BNV) | payer OTHER, SELFPAY | PROVIDERS: PCP Nurse Practitioner Family; Visit Provider Radiology Diagnostic Radiology | DX: N28.89 Other specified disorders of kidney and ureter (principal) | CPT/HCPCS: 50200; 77012 ==

== ENCOUNTER 2024-06-22 14:00 | Outpatient (AMB) | payer OTHER, SELFPAY ==
--- NOTE | 2024-06-22 14:07 | A.OFFVIS_ITS ---
VS Expanded 06/22/24 14:08 06/30/24 13:26 Height 5 ft 10 in 5 ft 10 in Weight 204 lb 5.896 oz 204 lb BMI 29.3 29.3 Intake Visit Reasons: Hyperlipidemia, unspecified Allergies pollen Allergy (Unknown, Verified 05/27/24 14:13) Unknown trees Allergy (Unknown, Verified 05/27/24 14:13) Unknown Nutrition Presentation Details: Pt presents for MNT for hyperlipidemia food frequency fruits/day : 0-2/d vegetables: 3/wk dairy: 1% (2x/day) fish: 0-1/wk Typicla meal B:cereal (raisin bran) with milk 1% L: Sand or fast food meal D: pasta or rice/chicken, veg: water or low fat milk snack: cookies/fruit/cereal, bread physical activityADL eoth/smoking---- BS Monitoring Most Recent Diabetes Results: Cholesterol 183 mg/dL (<200) 04/14/24 HDL Cholesterol 40 mg/dL (>40) L 04/14/24 Triglycerides 124 mg/dL (<150) 04/14/24 Creatinine 0.92 mg/dL (0.5-1.4) 04/14/24 Blood Urea Nitrogen 17 mg/dL (9-16) H 04/14/24 Sodium 141 mmol/L (135-145) 04/14/24 Potassium 4.5 mmol/L (3.3-5.1) 04/14/24 Chloride 105 mmol/L (96-108) 04/14/24 Carbon Dioxide 31 mmol/L (22-29) H 04/14/24 Calcium 9.4 mg/dL (8.4-10.2) 04/14/24 AST 30 U/L (5-37) 04/14/24 ALT 33 U/L (0-40) 04/14/24 Total Protein 7.2 g/dL (6.5-8.0) 04/14/24 Albumin 4.3 g/dL (3.5-5.0) 04/14/24 OPO-Jydlbgy-Ac.Jeor Equation Height: 5 ft 10 in Weight: 204 lb Resting Metabolic Rate: 1794.65 Calculated Activity Level: Moderate Activity Calories Needed to Maintain Weight: 2781.71 Diagnosis Nutrition problem #1: food nutri know defi As related to (etiology) #1: diagnosis As evidenced by (sign/symptom) #1: abnormal lab values [facility] Medical History Vertigo Sensorineural hearing loss Microscopic hematuria Chiari I malformation Menieres disease Surgical History (Updated 06/15/24 @ 09:32 by Jessy Cantu RN) History of abdominal surgery Family History Father Migraine Mother Anxiety Depression Asthma Social History Housing: House Housing Other:: with mother Alcohol intake: never Patient Tobacco Use Status: Never used Tobacco Second Hand Smoke Exposure: No service: No Current occupational status: disabled Cognitive needs: No Hearing needs: No Vision needs: No Assessment & Plan Assessment & Plan (1) Dyslipidemia: Code(s): E78.5 - Hyperlipidemia, unspecified Category: Medical Plan: Wt: 93 Kg ( 06/30 ) Est kcal needs as per MSJ: 2800 (40% carb, 30% protein/fat) Est fluid needs as per 25-30 ml/d: 2800 Est prot per day as per 1 g/kg bw: 93 Recommend fiber intake : 8-10 g per day and gradually increase to 25-28 g per day for women and 35-38 g for men or as tolerated Recommend sodium intake per day : less than 2000 mg Educated patient on: ( R = reviewed V = verbalizes understanding N/R = needs review N/A = not applicable Discussed low fat food concepts (reducing saturated fast) and including MUFA and fiber sources of foods.:R * Food sources of carbohydrate, adequate serving sizes and its role in various health conditions: R V N/R * Differences between complex carbohydrates a simple carbohydrates, role of fiber in diet: R * Lean protein sources of foods: R V NR * Differences between types of fats and role in diet (mono on saturated fat fatty acids, saturated fatty acids, trans fats): R * Food sources of sodium in salt and healthy modifications for heart health in kidney health: R V R/V * Vitamins and minerals: R V N/R * Healthy plate method concept: R * Physical activity: Benefits a precaution: R Patient Instructions: * Have 2 fruits a day in place of juices * Have tuna in bowl of salad with olive oil and vinegar * keep walking goal 30 minutes 3 times/weeks * Continue working on reducing pastries/fried foods/highly processed foods Coding Level of Care Code Nutr Indiv Intake (43490) Diagnoses Dyslipidemia E78.5 Time Spent (min) 30
[2024-06-22 14:08] VITALS: BMI 29.3
[2024-06-30 13:26] VITALS: BMI 29.3
== END 2024-06-22 14:46 | disposition home or self-care (01) ==
LOC: HO.ENCR 14:01
PROVIDERS: PCP Nurse Practitioner Family; Visit Provider Dietitian, Registered
DX: E78.5 Hyperlipidemia, unspecified (principal)

== ENCOUNTER → 2024-06-22 14:00 | Outpatient (BNVA) | payer OTHER, SELFPAY | PROVIDERS: PCP Nurse Practitioner Family; Visit Provider Dietitian, Registered | DX: E78.5 Hyperlipidemia, unspecified (principal) | CPT/HCPCS: 97802 ==

== ENCOUNTER 2024-11-26 10:30 | Outpatient (AMB) | payer OTHER, SELFPAY ==
--- NOTE | 2024-11-26 10:33 | A.OFFVIS_ITS ---
Vital Signs 3 11/26/24 10:34 Height 5 ft 10 in Weight 198 lb 6.656 oz BMI 28.5 BP 137/79 Blood Pressure Location Lt brachial Position Sitting Pulse 69 Intake Visit Reasons: Colonoscopy Screening Intake Note: Cr presents in the office as a new patient colonoscopy screening. CC: States that this is just a pre screen - no concerns. He states some constipation but nothing conerning. Human Resource Advisor Required: No Allergies pollen Allergy (Unknown, Verified 11/26/24 10:35) Unknown trees Allergy (Unknown, Verified 11/26/24 10:35) Unknown HPI HPI Colonoscopy Screening: Details: 48-year-old male here for preprocedural meeting to discuss a screening colonoscopy. He is referred by You Ramirez. 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 Bowel and upper GI problems: change of bowel habits, at times has limited eating r/t sleeping late and lifestyle. Cardiac and respiratory problems: none Prior problems with anesthesia or sedation: pt is naive. There are no infectious disease problems. no. Family history of colon cancer or polyps: his sister just had a colonoscopy with polyps removed. [facility] Medical History (Updated 11/26/24 @ 12:48 by MARICRUZ Beltran) Dental infection Acute sore throat Screening for colon cancer Screening for prostate cancer Physical exam Abnormal findings on diagnostic imaging of other specified body structures Encounter for screening laboratory testing for COVID-19 virus Vertigo Sensorineural hearing loss Microscopic hematuria Chiari I malformation Menieres disease Surgical History History of abdominal surgery Family History Father Migraine Mother Anxiety Depression Asthma Social History Housing: House Housing Other:: with mother Alcohol intake: never Patient Tobacco Use Status: Never used Tobacco Second Hand Smoke Exposure: No service: No Current occupational status: disabled Cognitive needs: No Hearing needs: No Vision needs: No Review of Systems Const Denies fatigue, Denies fever(s), Denies night sweats, Denies poor appetite and Reports weight loss ENT Reports Normal hearing present, Denies dental pain, Denies dysphagia, Reports vertigo, Reports dizziness, Reports hearing loss, Denies mouth pain, Denies odynophagia, Denies throat swelling, Denies tongue swelling and Reports other (Dentition adequate) Card Reports no additional complaints Resp Reports no additional complaints GI Details: Denies abdominal pain, Denies melena, Denies bloating, Denies hematochezia, Reports change in bowel habits, Denies constipation, Reports GI cramping, Denies dysphagia, Denies excessive flatus, Denies early satiety, Denies heartburn, Denies diarrhea, Reports loose stools, Denies nausea, Denies odynophagia, Denies vomiting and Denies hematemesis Skin/Breast Denies pruritus, Denies lesions, Denies rash and Denies jaundice Neuro Reports Normal hearing present, Denies Abnormal speech present, Reports vertigo and Reports dizziness Endo Denies fatigue Aller/Immun Denies throat swelling and Denies tongue swelling Physical Exam Vital Signs: Last Vital Signs Pulse 69 11/26/24 10:34 BP 137/79 11/26/24 10:34 BMI result Body Mass Index 28.5 Const General: cooperative, no acute distress, well developed and well groomed Nutritional Appearance: well nourished and overweight Orientation/consciousness: oriented to person, oriented to place and oriented to time Limitations: No language barrier HEENT Head: Yes normocephalic and Yes atraumatic Eyes General: appearance normal, both eyes and all related structures Pupils: Equal, round and reactive pupils present Neck Neck: Yes normal visual inspection and Yes no lymphadenopathy Thyroid: Thyroid normal Resp Effort & Inspection: normal respiratory effort and able to speak in complete sentences Auscultation: clear to auscultation bilaterally Cardio Rate: regular rate Rhythm: regular rhythm Heart sounds: Normal, physiologic split S2 sound present Peripheral pulses: radial pulses present and posterior tibial pulses present GI Inspection: No distended and No Abdominal panniculus present Palpation (GI): Soft to palpation, nontender, no guarding, not rigid and No hepatosplenomegaly present Percussion: Yes normal to percussion Auscultation: normal bowel sounds Rectal Exam - Male: Yes deferred Abdomen image: 2 1. well healed surgical scar Skin General skin exam: no rashes or lesions noted, turgor normal, skin not dry, no jaundice, No spider nevi and no striae Rashes: no rashes Nails: normal Neuro General: oriented to person, oriented to place and oriented to time Cranial nerves: Yes Equal, round and reactive pupils present and Yes Normal hearing present Speech: No Abnormal speech present Extrem General: Yes normal to inspection, No clubbing, No cyanosis and No edema Psych Appearance: grossly normal and well kempt Mental Status: mental status grossly normal Speech and movement: Pressured speech present Affect: Anxious affect present Attitude: cooperative Thought process: not confabulating and Tangential thought process present Thought content: Normal thought content present Insight: Fair insight present (Psych) and Limited insight present (Psych) Judgement: Fair judgement present (Psych) and Limited judgement present (Psych) Assessment & Plan Assessment & Plan (1) Pre-op examination: Code(s): Z01.818 - Encounter for other preprocedural examination Category: Medical (2) Family history of polyps in the colon: Comment: Sister Code(s): Z83.719 - Family history of colon polyps, unspecified Category: Medical Plan This is his 1st colonoscopy. Bowel and upper GI problems: change of bowel habits, at times has limited eating r/t sleeping late and lifestyle. Cardiac and respiratory problems: none Prior problems with anesthesia or sedation: pt is naive. There are no infectious disease problems. no. Family history of colon cancer or polyps: his sister just had a colonoscopy with polyps removed. - The patient is a 48-year-old male presenting with a history of colonic issues and for a colonoscopy consultation. - Reports recent abdominal discomfort that is relieved by ibuprofen but associated with occasional inconsistent stool patterns following a previous ER visit for a UTI. - Diagnosed previously with diverticulosis, although recent imaging did not show active inflammation, (the patient thought that the ER told him me had colitis or colon inflammation but this is not borne out by the testing) . - Dietary habits include a decrease in fiber intake and some episodes of intermittent fasting, impacting bowel regularity. - Previous surgical procedure for a benign abdominal cyst, with details sparse on past gastrointestinal surgical history. - The patient is on disability and has a late waking time, often 12 PM. - Engages in regular exercise, attending the gym five times a week. - Dietary habits include periods of fasting, significant food intake in one sitting, and low fiber intake. - Expresses interest in building muscle but has concerns regarding high cholesterol. - Facilitate scheduling for a colonoscopy to monitor and prevent colorectal cancer, ensuring education on the procedure's preventive nature and successful colonoscopy indicators like polyps removal. - Diet modifications with increased fiber through cereals, fruits, and possible supplements to improve gastrointestinal health and bowel movements. - Recommend probiotic supplementation to restore gut pennie imbalances following prior antibiotic treatments. - Assure the patient regarding CT scan findings and support understanding over abdominal discomfort causes, reiterating the absence of active inflammation. - Continue lifestyle discussion and offer ongoing clarification regarding dietary patterns and physical health habits. Orders: Orders 2 Colonoscopy - GI Use Only Today Z01.818 - Encounter for other preprocedural examination Medications: New 2 peg 3350-electrolytes 236-22.74-6.74 -5.86 gram (Golytely) until fecal effluent is clear; do not exceed a total volume of 2,000 mL 240 mL PO Q10M 4,000 mL 0RF 1 day Z12.11 - Encounter for screening for malignant neoplasm of colon bisacodyl (Dulcolax (bisacodyl)) 10 mg (2 x 5 mg) PO BEDTIME 4 tabs 0RF 2 days Coding Level of Care Code New Pt Level 3 (90555) Diagnoses Pre-op examination Z01.818 Family history of polyps in the colon Z83.719
[2024-11-26 10:34] VITALS: BP 137/79; PULSE 69; BMI 28.5
== END 2024-11-26 11:25 | disposition home or self-care (01) ==
LOC: HO.HGI 10:31
PROVIDERS: PCP Nurse Practitioner Family; Visit Provider Nurse Practitioner
DX: Z01.818 Encounter for other preprocedural examination (principal); Z12.11 Encounter for screening for malignant neoplasm of colon; Z83.719 Family history of colon polyps, unspecified
CPT/HCPCS: 99203

== ENCOUNTER → 2024-11-26 10:30 | Outpatient (BNVA) | payer OTHER, SELFPAY | PROVIDERS: PCP Nurse Practitioner Family; Visit Provider Nurse Practitioner | DX: Z01.818 Encounter for other preprocedural examination (principal); Z83.719 Family history of colon polyps, unspecified | CPT/HCPCS: 99202 ==

== ENCOUNTER 2024-12-01 11:34 | Outpatient (AMB) | payer OTHER, SELFPAY ==
--- NOTE | 2024-12-01 11:37 | A.OFFPC_ITS ---
Vital Signs 12/01/24 11:38 Weight 202 lb BP 130/90 H Blood Pressure Location Lt brachial Position Sitting Respiration 16 Pulse 70 Pulse Source Pulse Oximeter Pulse Oximetry (%) 96 Oxygen Delivery Method Room Air Intake Visit Reasons: 6m f/u Recruiter Coordinator Required: No Accompanied by: Self / Same As Patient Allergies pollen Allergy (Unknown, Verified 12/01/24 11:43) Unknown trees Allergy (Unknown, Verified 12/01/24 11:43) Unknown Tobacco use date assessed: 12/01/24 Dental Screening Dental Screen Date: 12/01/24 Did you have a dental visit in the last 12 months?: Yes Did you have a dental problem in the last 6 months where you did not have access to dental care?: No Was dental information given to patient?: Patient has dentist HPI 6m f/u HPI Details Chief Complaint The patient presents for a follow-up on dyslipidemia management. History of Present Illness The patient is a 49-year-old male presenting with a follow-up for dyslipidemia. He denies experiencing any chest pain, dyspnea, headache, or blurred vision. The patient has a history of microhematuria, for which he has previously consulted a urologist. He denies any visible hematuria currently. The patient is currently on atorvastatin 10 mg for dyslipidemia management. Social History Health Maintenance Review of Systems - Cardiovascular: Denies chest pain or d yspnea - Neurological: Denies headache or blurr ed vision - Genitourinary: Denies visible hematuri a Physical Exam General: Cooperative, healthy appearing, comfortable, no acute distress and well developed Orientation: Patient oriented x3 Limitations: No limitations Head: Normal to inspection Ears: Hearing grossly normal bilaterally Nose: Normal external nose present Face and sinus: Normal facial exam Eyes: Appearance normal, both eyes and all related structures Neck: Normal visual inspection and Yes full ROM Respiratory: Normal respiratory effort and able to speak in complete sentences. Clear to auscultation bilaterally Cardiovascular: Regular rate and rhythm. Normal S1 and S2 GI: Normal to inspection. Soft to palpation and nontender Skin: No rashes or lesions noted Neuro: Patient oriented x3 Extremities: Normal to inspection Plan LAB ordered 1. Dyslipidemia The patient is on atorvastatin 10 mg for dyslipidemia management. Repeat laboratory tests will be conducted to monitor lipid levels. 2. Microhematuria The patient has a history of microhematuria and has previously consulted a urologist. Currently, he denies any visible hematuria. Discussion Notes Patient Instructions [facility] Medical History Screening for prostate cancer Dental infection Acute sore throat Screening for colon cancer Physical exam Abnormal findings on diagnostic imaging of other specified body structures Encounter for screening laboratory testing for COVID-19 virus Vertigo Sensorineural hearing loss Microscopic hematuria Chiari I malformation Menieres disease Surgical History History of abdominal surgery Family History Father Migraine Mother Anxiety Depression Asthma Social History Housing: House Housing Other:: with mother Alcohol intake: never Patient Tobacco Use Status: Never used Tobacco Second Hand Smoke Exposure: No service: No Current occupational status: disabled Cognitive needs: No Hearing needs: No Vision needs: No Questionnaire PHQ-9 Over the last 2 weeks, how often have you been bothered by any of the following problems? 1. Little interest or pleasure in doing things: not at all 2. Feeling down, depressed, or hopeless: not at all 3. Trouble falling or staying asleep, or sleeping too much: not at all 4. Feeling tired or having little energy: not at all 5. Poor appetite or overeating: not at all 6. Feeling bad about yourself - or that you are a failure or have let yourself or your family down: not at all 7. Trouble concentrating on things, such as reading the newspaper or watching television: not at all 8. Moving or speaking so slowly that other people could have noticed. Or the opposite - being so fidgety or restless that you have been moving around a lot more than usual: not at all 9. Thoughts that you would be better off or of hurting yourself in some way: not at all Total score: 0 Depression Screening Interpretation: Negative Depression Screening Done: Yes 02323 - PHQ-9 Billing: Yes Source: Developed by Drs. Devan Ortiz, Marianne Harden, James Granado and colleagues, with an educational uday from [employer]. Thrive Questionnaire Date Thrive assessed: 05/24/24 I am a: Patient What is your living situation today?: I have a steady place to live Within the past 12 months, did the food you bought not last and you didn't have the money to get more?: Sometimes True Within the past 12 months, did you worry whether your food would run out before you got money to buy more?: Sometimes True Do you have trouble paying for medicines?: No Do you have trouble getting transportation to medical appointments?: No Do you have trouble paying your heating and electricity bill?: No Do you have trouble taking care of your child, family member or friend?: No Do you have trouble with day-to-day activities such as bathing, preparing meals, shopping, managing finances, etc.?: No Are you currently unemployed and looking for a job?: No Are you interested in more education?: No Please select the resources that you would like help with: None Currently or been in a relationship where the following occur: I choose not to answer THRIVE Score: 2 GENE-7 AMB Questionnaire GENE-7 Date GENE - 7 assessed: 05/27/24 Source: Developed by Drs. Devan Ortiz, Marianne Harden, James Granado and colleagues, with an educational uday from [employer]. Physical exam (Primary Care) Vital Signs: Last Vital Signs Pulse 70 12/01/24 11:38 Resp 16 12/01/24 11:38 BP 130/90 H 12/01/24 11:38 Pulse Ox 96 12/01/24 11:38 Oxygen Delivery Method Room Air 12/01/24 11:38 Tobacco/Smoking Status: Tobacco use Status Tobacco use date assessed 12/01/24 12/01/24 11:38 Patient Tobacco Use Status Never used Tobacco 12/01/24 11:38 PHQ-9: PHQ-9 Score PHQ-9: Total score 0 12/01/24 11:43 Depression Screening Interpretation: Negative Thrive Assessment: Date of Thrive Assessment Date Thrive assessed 05/24/24 12/01/24 11:38 Currently or been in a relationship where the following occur: I choose not to answer Coding Level of Care Code Est Pt Level 3 (13873) Diagnoses Dyslipidemia E78.5 Screening for prostate cancer Z12.5 Enlarged prostate N40.0 Additional Codes PHQ-9 - 69267 - PHQ-9 Billing: Yes ([id number]) Assessment & Plan Assessment & Plan (1) Dyslipidemia: Code(s): E78.5 - Hyperlipidemia, unspecified Category: Medical (2) Screening for prostate cancer: Code(s): Z12.5 - Encounter for screening for malignant neoplasm of prostate Category: Medical (3) Enlarged prostate: Code(s): N40.0 - Benign prostatic hyperplasia without lower urinary tract symptoms Category: Medical Plan . Orders: Orders Comprehensive Crocker. Panel Fast Today E78.5 - Hyperlipidemia, unspecified TSH reflex Free T4 Today E78.5 - Hyperlipidemia, unspecified Complete Blood Count Auto Diff Today E78.5 - Hyperlipidemia, unspecified UA CC w/rflx Micro + Cult Today E78.5 - Hyperlipidemia, unspecified Lipid Panel Today E78.5 - Hyperlipidemia, unspecified Prostate Specific Antigen Scr Today N40.0 - Benign prostatic hyperplasia without lower urinary tract symptoms, Z12.5 - Encounter for screening for malignant neoplasm of prostate
[2024-12-01 11:38] VITALS: BP 130/90; PULSE 70; RESP 16; O2SAT 96
== END 2024-12-01 14:26 | disposition home or self-care (01) ==
LOC: HO.HMCC 11:35
PROVIDERS: PCP Nurse Practitioner Family; Visit Provider Nurse Practitioner Family
DX: E78.5 Hyperlipidemia, unspecified (principal); Z12.5 Encounter for screening for malignant neoplasm of prostate; N40.0 Benign prostatic hyperplasia without lower urinary tract symptoms

== ENCOUNTER → 2024-12-01 11:34 | Outpatient (BNVA) | payer OTHER, SELFPAY | PROVIDERS: PCP Nurse Practitioner Family; Visit Provider Nurse Practitioner Family | DX: N40.0 Benign prostatic hyperplasia without lower urinary tract symptoms (principal); R31.29 Other microscopic hematuria; E78.5 Hyperlipidemia, unspecified | CPT/HCPCS: 96127; 99212 ==

== ENCOUNTER 2025-01-26 13:25 | Outpatient (REF) | payer OTHER, SELFPAY ==
[2025-01-26 16:09] LABS: Appearance Urine Turbid; Glucose Urine UA Negative (Negative); PH 6.0 (5.0-9.0); Specific Gravity - Urine >= 1.030 (1.005-1.025); UMIC TRIGGER UACC YES
[2025-01-26 16:15] LABS: MANUAL DIFF FLAG NO
[2025-01-26 16:21] LABS: Hematocrit 43.4 % (42.0-52.0); Hemoglobin 15.3 g/dl (14.0-18.0); Imm Gran Abs Auto 0.04 X10*3/uL (0.00-0.03); Imm Gran Pct Auto 0.7 % (0.0-0.4); Lymphocytes Absolute Auto 1.9 X10*3/uL (1.2-4.9); Mean Corpuscular HGB Conc 35.3 g/dl (31.0-36.0); Mean Corpuscular Hemoglobin 31.9 pg (27.0-33.0); Mean Corpuscular Volume 90.6 fL (80.0-98.0); NRBC Abs Auto 0.000 X10*3/uL (0.0-0.012); NRBC Pct Auto 0.0 /100WBC (0.0-0.2); Platelet Count 209 X10*3/uL (160-400); Red Blood Count 4.79 X10*6/uL (4.60-5.80); White Blood Count 5.6 X10*3/uL (4.8-10.8)
[2025-01-26 17:19] LABS: Alanine Aminotransferase 33 U/L (0-40); Albumin Level 4.5 g/dL (3.5-5.0); Alkaline Phosphatase 71 U/L (39-117); Anion Gap 8 (12-20); Aspartate Amino Transferase 26 U/L (5-37); Blood Urea Nitrogen 18 mg/dL (9-16); Calcium 9.0 mg/dL (8.4-10.2); Carbon Dioxide 28 mmol/L (22-29); Chloride 106 mmol/L (96-108); Cholesterol 185 mg/dL (<200); Estimated Glomerular Filt Rate > 60; HDL Cholesterol 39 mg/dL (>40); Potassium 3.6 mmol/L (3.3-5.1); Sodium 138 mmol/L (135-145); Total Protein 7.1 g/dL (6.5-8.0); Triglycerides 113 mg/dL (<150)
== END 2025-01-26 13:26 | disposition home or self-care (01) ==
LOC: HO.HMGCLDS 13:25
PROVIDERS: PCP Nurse Practitioner Family; Visit Provider Nurse Practitioner Family
DX: Z12.5 Encounter for screening for malignant neoplasm of prostate (principal); N40.0 Benign prostatic hyperplasia without lower urinary tract symptoms; E78.5 Hyperlipidemia, unspecified
CPT/HCPCS: 36415; 80053; 80061; 81001; 84153; 84443; 85025

== ENCOUNTER 2025-03-18 06:55 | Day surgery (SDC) | payer OTHER, SELFPAY ==
--- NOTE | 2025-03-16 10:00 | HO.ANESPROP2 ---
Documented by User: Shanna Aguiar NP 03/16/25 10:00 HPI - Anesthesia Eval Consult details Narrative: 49yo M for Colonoscopy PMFSH Active Problems Active Problems: All Active Problems Enlarged prostate (Acute) Screening for prostate cancer (Acute) Family history of polyps in the colon (Acute) Menieres disease (Acute) Sensorineural hearing loss (Acute) Pre-op examination (Acute) Soft tissue mass (Acute) Kidney cysts (Acute) Right wrist injury (Acute) Elevated liver enzymes (Acute) Dyslipidemia (Acute) Microscopic hematuria (Acute) Past Medical History Medical History Screening for prostate cancer Dental infection Acute sore throat Screening for colon cancer Physical exam Abnormal findings on diagnostic imaging of other specified body structures Encounter for screening laboratory testing for COVID-19 virus Vertigo Sensorineural hearing loss Microscopic hematuria Chiari I malformation Menieres disease Family History Family History Father Migraine Mother Anxiety Depression Asthma Surgical History Surgical History History of surgery History of abdominal surgery Social History Social History Housing: House Housing Other:: with mother Alcohol intake: never Patient Tobacco Use Status: Never used Tobacco Second Hand Smoke Exposure: No Use of substances other than those prescribed or required for medical reasons: No Are you DNR?: No Advance Directives: No Advance Directives Information Provided: Yes service: No Current occupational status: disabled Cognitive needs: No Hearing needs: No Vision needs: No Meds Allergies Allergy/AdvReac Type Severity Reaction Status Date / Time pollen Allergy Unknown Unknown Verified 12/01/24 11:43 trees Allergy Unknown Unknown Verified 12/01/24 11:43 Home Medications ?Medication ?Instructions ?Recorded ?Confirmed ?Last Taken ?Type nortriptyline 50 mg capsule 50 mg PO BEDTIME 02/22/20 03/16/25 Unknown History triamterene 37.5 1 cap PO DAILY 02/22/20 03/16/25 Unknown History mg-hydrochlorothiazide 25 mg capsule verapamil 120 mg tablet 120 mg PO DAILY 02/22/20 03/16/25 Unknown History Assessment and Plan Assessment Anesthesia Assessment: Chart Reviewed Documented by User: Jason Whittaker MD 03/18/25 08:30 PMFSH Past Medical History Medical History Screening for prostate cancer Dental infection Acute sore throat Screening for colon cancer Physical exam Abnormal findings on diagnostic imaging of other specified body structures Encounter for screening laboratory testing for COVID-19 virus Vertigo Sensorineural hearing loss Microscopic hematuria Chiari I malformation Menieres disease Cognitive capacity: good Family History Family History Father Migraine Mother Anxiety Depression Asthma Family history of problems with anesthesia: No Surgical History Surgical History History of surgery History of abdominal surgery History of Problems with Anesthesia: No Social History Social History Housing: House Housing Other:: with mother Alcohol intake: never Patient Tobacco Use Status: Never used Tobacco Second Hand Smoke Exposure: No Use of substances other than those prescribed or required for medical reasons: No Are you DNR?: No Advance Directives: No Advance Directives Information Provided: Yes service: No Current occupational status: disabled Cognitive needs: No Hearing needs: No Vision needs: No Meds Allergies Allergy/AdvReac Type Severity Reaction Status Date / Time pollen Allergy Unknown Unknown Verified 12/01/24 11:43 trees Allergy Unknown Unknown Verified 12/01/24 11:43 Home Medications ?Medication ?Instructions ?Recorded ?Confirmed ?Last Taken ?Type nortriptyline 50 mg capsule 50 mg PO BEDTIME 02/22/20 03/16/25 Unknown History triamterene 37.5 1 cap PO DAILY 02/22/20 03/16/25 Unknown History mg-hydrochlorothiazide 25 mg capsule verapamil 120 mg tablet 120 mg PO DAILY 11/16/20 12/09/25 Unknown History Exam Exam Date and Time: 03/18/2025 Airway Mallampati Class: II TM Dist: >3cm Neck ROM: Full Loose/Missing/Broken Teeth: No Heart: normal Lungs: normal Other: normal Assessment and Plan Assessment Anesthesia Assessment: Anesthesia Plan Discussed Final Anesthetic Review Family History of Problems with Anesthesia: No History of Problems with Anesthesia: No NPO: Yes ASA Class: II Final Preanesthetic Review: No Changes in Pt Med Stat, Meds/Allgs Chart Reviewed, Consent Obtained/Reviewed and Anes Risks/Benef Reviewed Patient Risk: Low Procedure Risk: Low Anesthetic Plan Anesthetic Plan: MAC: Disposition: Standard PACU
[2025-03-16 13:22] VITALS: BMI 28.4
[2025-03-18 07:36] VITALS: BP 142/78; PULSE 61; RESP 16; TEMP 36.3; O2SAT 94
[2025-03-18 07:41] VITALS: BMI 28.9
[2025-03-18] MEDS: Lactated Ringers 1,000 ML 100 ML IVCONT (07:47)
--- NOTE | 2025-03-18 08:07 | MHC.SHP ---
Pre-Procedural Eval Section A - 24 Hr Update-Section A only Date of Service: 03/18/25 Section B - Complete if H&P > 30 days Chief Complaint: Family history of colon polyps, Relevant Family History (Specify if Yes): Yes Relevant Social History: None Present Medications: see Short Stay Collaborative assessment Medical History: Significant History (Screening for prostate cancer Dental infection Acute sore throat Screening for colon cancer Physical exam Abnormal findings on diagnostic imaging of other specified body structures Encounter for screening laboratory testing for COVID-19 virus Vertigo Sensorineural hearing loss Microscopic hematuria ) History of Previous Operations: Relevant previous surgery/procedure and date(s) ( History of abdominal surgery) Allergies: Allergies Allergy/AdvReac Type Severity Reaction Status Date / Time pollen Allergy Unknown Unknown Verified 12/01/24 11:43 trees Allergy Unknown Unknown Verified 12/01/24 11:43 Review of Systems Sugical H&P ROS: Negative: Constitution, Cardiovascular, Respiratory, Neurological, Psychiatric, Hem-Onc, Allergic/Immunologic, Gastrointestinal, Genitourinary, Musculoskeletal, Integumentary, Endocrine and Eyes/Ears/Nose/Throat Exam Surgical H&P Exam: Normal: HEENT, Normal: Heart, Normal: Lungs, Normal: Extremities, Normal: Abdomen, Normal: Skin and Normal: Neurological Plan Diagnosis/Plan: Unchanged I have reviewed the history and physical and performed a pertinent physical examination on my patient. No changes have occurred unless specified. Time Spent With Patient Time: Total time managing care of this patient today ____ minutes.
--- NOTE | 2025-03-18 08:30 | HO.ANESPROP2 ---
[facility] Active Problems Active Problems: All Active Problems (Updated 12/01/24 @ 12:00 by You Ramirez, [facility]) Enlarged prostate (Acute) Family history of polyps in the colon (Acute) Pre-op examination (Acute) Soft tissue mass (Acute) Kidney cysts (Acute) Right wrist injury (Acute) Elevated liver enzymes (Acute) Dyslipidemia (Acute) Screening for prostate cancer (Acute) Menieres disease (Acute) Sensorineural hearing loss (Acute) Microscopic hematuria (Acute) Past Medical History Medical History Screening for prostate cancer Dental infection Acute sore throat Screening for colon cancer Physical exam Abnormal findings on diagnostic imaging of other specified body structures Encounter for screening laboratory testing for COVID-19 virus Vertigo Sensorineural hearing loss Microscopic hematuria Chiari I malformation Menieres disease Family History Family History Father Migraine Mother Anxiety Depression Asthma Family history of problems with anesthesia: No Surgical History Surgical History History of surgery History of abdominal surgery History of Problems with Anesthesia: No Social History Social History Housing: House Housing Other:: with mother Alcohol intake: never Patient Tobacco Use Status: Never used Tobacco Second Hand Smoke Exposure: No Use of substances other than those prescribed or required for medical reasons: No Are you DNR?: No Advance Directives: No Advance Directives Information Provided: Yes service: No Current occupational status: disabled Cognitive needs: No Hearing needs: No Vision needs: No Meds Allergies Allergy/AdvReac Type Severity Reaction Status Date / Time pollen Allergy Unknown Unknown Verified 12/01/24 11:43 trees Allergy Unknown Unknown Verified 12/01/24 11:43 Active Medications: Current Medications Lactated Ringer's (Lr) 1,000 mls @ 100 mls/hr IVCONT .Q10H TANIA Last Admin: 03/18/25 07:47 Dose: 100 mls/hr Home Medications ?Medication ?Instructions ?Recorded ?Confirmed ?Last Taken ?Type nortriptyline 50 mg capsule 50 mg PO BEDTIME 02/22/20 03/16/25 Unknown History triamterene 37.5 1 cap PO DAILY 02/22/20 03/16/25 Unknown History mg-hydrochlorothiazide 25 mg capsule verapamil 120 mg tablet 120 mg PO DAILY 02/22/20 03/16/25 Unknown History Exam Height,Weight and Vital Signs: Height 5 ft 10 in Weight 91.3 kg Last Vital Signs Temp 97.4 F 03/18/25 07:36 Pulse 61 03/18/25 07:36 Resp 16 03/18/25 07:36 BP 142/78 H 03/18/25 07:36 Pulse Ox 94 03/18/25 07:36 O2 Del Method Room Air 03/18/25 07:36 Assessment and Plan Final Anesthetic Review Family History of Problems with Anesthesia: No History of Problems with Anesthesia: No ASA Class: II Final Preanesthetic Review: No Changes in Pt Med Stat, Meds/Allgs Chart Reviewed and Consent Obtained/Reviewed Patient Risk: Low Procedure Risk: Low Anesthetic Plan Anesthetic Plan: MAC: Disposition: Standard PACU
--- NOTE | 2025-03-18 08:41 | HO.OPN-COLON ---
Colonoscopy Operative Note Operative Note Date of Service: 03/18/25 Narrative: Operative Information Procedure Description: Colonoscopy Indication: Screening Anesthesia: MAC COLONOSCOPY Instrument: Olympus variable stiffness pediatric scope 190L Colonoscopy Monitoring: Vital signs and clinical assessment, continuous EKG monitoring, Pulse oximetry, Carbon Dioxide monitoring and blood pressure monitoring were done throughout the procedure. Colon withdrawal time was 15 minutes. Procedure: The patient was placed in the left lateral decubitis position and pre-procedure medications were administered. After a digital rectal examination of the ano-rectum, the video colonoscope was inserted into the rectum and advanced through the colon to the cecum/TI. The colonoscope was slowly withdrawn in a retrograde panoramic fashion and the colon mucosa was carefully examined including a retroflexed view of the rectum. Findings and interventions are described below. Procedure Difficulty: easy Findings: Terminal Ileum- mile ileitis, and patchy erythema, bx taken Cecum:normal, bx taken Ascending Colon: 5-6 mm sessile polyp removed with cold bx forceps, random bx also taken Transverse Colon -normal Descending Colon: 5-7 mm sessile polyp removed with cold snare Sigmoid Colon: normal Rectum: Retroflexion with small internal hemorrhoids seen, grade I, x 3 sessile polyps 4-5 mm removed with cold forceps Anorectum - normal Intervention: cold snare, cold biopsy forceps Colon preparation: [place] Bowel Preparation Scale Right colon; 2 Transverse colon: 2 Left colon; 2 (0 = Unprepared colon segment with mucosa not seen due to solid stool that cannot be cleared. 1 = Portion of mucosa of the colon segment seen, but other areas of the colon segment not well seen due to staining, residual stool and/or opaque liquid. 2 = Minor amount of residual staining, small fragments of stool and/or opaque liquid, but mucosa of colon segment seen well. 3 = Entire mucosa of colon segment seen well with no residual staining, small fragments of stool or opaque liquid) Impression and Post Procedure Diagnosis: colon polyps x 5 internal hemorrhoids Plan: High fiber diet leaflet Avoid straining at stool, epsom salts and sitz bath, anusol supps or cream Repeat Colonoscopy in 4-5 years due to polyps or earlier if clinically indicated if concern for crohns then CTe will await bx results --also check nsaid hx Above findings were reviewed with the patient and relevant handouts were provided if indicated.
[2025-03-18 08:45] VITALS: BP 98/47; PULSE 60; RESP 16; TEMP 36.4; O2SAT 94
[2025-03-18 08:55] VITALS: BP 106/61; PULSE 71; RESP 10; O2SAT 96
[2025-03-18 09:05] VITALS: BP 126/69; PULSE 62; RESP 12; TEMP 36.3; O2SAT 95
== END 2025-03-18 10:00 | disposition home or self-care (01) ==
PROVIDERS: PCP Nurse Practitioner Family; Visit Provider Internal Medicine Gastroenterology
PROC: 0DJD8ZZ Inspection of Lower Intestinal Tract, Via Natural or Artificial Opening Endoscopic (ICD-10-PCS; CPT 45378; principal; 2025-03-18 08:20)
DX: Z12.11 Encounter for screening for malignant neoplasm of colon (principal); Z83.719 Family history of colon polyps, unspecified; K52.9 Noninfective gastroenteritis and colitis, unspecified; D12.4 Benign neoplasm of descending colon
CPT/HCPCS: 45380; 45385; 88305; J2003; J2704

== ENCOUNTER → 2025-03-18 06:55 | Outpatient (BNV) | payer OTHER, SELFPAY | PROVIDERS: PCP Nurse Practitioner Family; Visit Provider Internal Medicine Gastroenterology | DX: Z12.11 Encounter for screening for malignant neoplasm of colon (principal); K52.9 Noninfective gastroenteritis and colitis, unspecified; D12.2 Benign neoplasm of ascending colon; D12.8 Benign neoplasm of rectum; K64.0 First degree hemorrhoids; D12.4 Benign neoplasm of descending colon | CPT/HCPCS: 45380; 45385 ==